=== PATIENT | male | born 1965 | race Caucasian/White ===

== ENCOUNTER 2024-09-11 20:51 | Inpatient (IN) | payer OTHER, MEDICAID, SELFPAY ==
[2024-09-11 20:55] VITALS: BP 105/71; PULSE 63; RESP 19; TEMP 37; O2SAT 93
[2024-09-11 20:57] VITALS: BMI 33.1
--- NOTE | 2024-09-11 21:00 | PC.NURSE ---
PT BROUGHT TO ER FROM HOME VIA AMBULANCE FOR C/O CP, SOB AND DIZZINESS STARTED MONDAY.EMS REPORTED THEY FOLLOWED CP PROTOCOL, NITRO PASTE WAS GIVEN.
[2024-09-11 21:18] VITALS: PULSE 86; RESP 16; O2SAT 94
--- NOTE | 2024-09-11 21:27 | XR_ITS ---
Examination: AP chest single view Technique one AP portable upright chest single view Exam date and time: September 11, 2024 2134 hrs. Comparison December 04, 2023 Indications: Chest chest pain today. Findings: Mild enlargement cardiac contour Stable position transvenous dual-chamber bipolar cardiac leads as well as epicardial lead Mild vascular congestion. No lobar pneumonia or pulmonary edema Impression: Mild vascular congestion No lobar pneumonia or pulmonary edema
--- NOTE | 2024-09-11 21:28 | EDNOTE_ITS ---
ED General RME/HPI General Chief complaint: Chest Pain Stated complaint: CHEST PAIN Time Seen by Provider: 09/11/24 21:27 Arrival date/time: 09/11/24 20:51 CC: Chest pain HPI onset approximately 2 hours ago, left anterior initially 7 out of 10 scale after aspirin and nitro decreased to a 3 on a 10 scale patient transported via EMS who reports stable vital signs and route patient has cardiac cardiac history including a pacemaker he is a diabetic on insulin. Currently pain is a 3. Patient is awake alert oriented denies shortness of breath difficulty breathing headache nausea or vomiting. Patient states industry consultant is Dr. Tariq Related [employer] Home Medications ?Medication ?Instructions ?Recorded ?Confirmed glipizide 5 mg tablet 5 mg PO BID 08/28/19 03/28/22 insulin glargine 100 unit/mL (3 20 unit subcut QPM 08/28/19 03/29/22 mL) subcutaneous pen (Lantus Solostar U-100 Insulin) insulin lispro protamine-lispro 15 unit subcut QDAY PRN sugar >250 08/28/19 03/29/22 100 unit/mL (50-50) subcutaneous pen (Humalog Mix 50-50 KwikPen) metformin 500 mg tablet 1,000 mg PO BID 08/28/19 03/29/22 bumetanide 2 mg tablet 2 mg PO QDAY 03/28/22 03/28/22 metoprolol succinate 50 mg 50 mg PO QDAY 03/28/22 03/29/22 tablet,extended release 24 hr sacubitril 24 mg-valsartan 26 mg 1 tab PO BID 03/28/22 03/28/22 tablet (Entresto) spironolactone 25 mg tablet 25 mg PO BID 03/28/22 03/28/22 warfarin 5 mg tablet 5 mg PO QDAY 03/28/22 03/28/22 albuterol sulfate 90 mcg/actuation 2 puff inhalation Q4H PRN 03/29/22 03/29/22 aerosol inhaler (ProAir HFA) Shortness Of Breath furosemide 40 mg tablet (Lasix) 40 mg PO QAM 03/29/22 03/29/22 glyburide 2.5 mg tablet 2.5 mg PO QDAY 03/29/22 03/29/22 insulin glargine 100 unit/mL (3 20 unit subcut HS 03/29/22 03/29/22 mL) subcutaneous pen (Lantus Solostar U-100 Insulin) saxagliptin 5 mg tablet (Onglyza) 5 mg PO QDAY 03/29/22 03/29/22 Previous Rx's ?Medication ?Instructions ?Recorded atorvastatin 10 mg tablet 10 mg PO QDAY 30 days #30 tabs 01/29/22 Allergies Allergy/AdvReac Type Severity Reaction Status Date / Time Penicillins Allergy Unknown Verified 03/28/22 06:36 Review of Systems Review of Systems Narrative Review of Systems: GEN: No fever, no chills, no weight loss EYES: No discharge, no visual changes, no pain HEENT: No ear pain, no congestion, no sore throat PULM: No shortness of breath, no cough, no congestion CV: + chest pain, no dyspnea on exertion, no palpitations GI: No nausea, no vomiting, no diarrhea, no pain, no constipation : No frequency, no urgency, no dysuria MUSC/SKEL: No joint pain, no back pain SKIN: No rash PSYCH: No hallucinations, no depression HEME/LYMPH: No easy bleeding or bruising tendencies NEURO: No weakness, no headache Past Medical History Past Medical History NEUROLOGIC: Negative Neurological Disorders, Cerebrovascular Accident, Transient Ischemic Attacks (TIA), Dementia, Alzheimer's Disease, Brain Tumor, Meningitis, Seizures, Epilepsy, Multiple Sclerosis, Cerebral Palsy, Amyotrophic Lateral Sclerosis (ALS/Taylor Gehrig's), Guillain-Atco Syndrome, Spina Bifida, Nowak's Palsy, Subdural Hematoma, Migraine, Head Trauma, Spinal Cord Injury or Traumatic Brain Injury CARDIAC: Positive Cardiac Disorders, Cardiac Arrhythmia, Atrial Fibrillation, Coronary Artery Disease, Hypercholesterolemia, Congestive Heart Failure, Cardiomyopathy, Edema, Cellulitis and Hypertension; Negative Myocardial Infarction, Angina, Heart Murmur, Atherosclerotic Heart Disease, Peripheral Vascular Disease, Aneurysm, Congenital Heart Disease, Valvular Heart Disease, Rheumatic Fever, Pericarditis, Deep Vein Thrombosis or Varicose Veins RESPIRATORY: Negative Chronic Obstructive Pulmonary Disease (COPD), Asthma, Bronchitis, Emphysema, Pneumonia, Pulmonary Fibrosis, Cystic Fibrosis, Tuberculosis, Pulmonary Embolism, Pulmonary Edema or Sleep Apnea GASTROINTESTINAL: Positive Obesity; Negative Gastrointestinal Disorders, Hepatitis, Cirrhosis, Pancreatitis, Celiac Disease, Gall Bladder Disease, Gastrointestinal Bleed, Esophageal Varices, Robledo's Esophagus, Colitis, Ulcerative Colitis, Diverticulitis, Diverticulosis, Ulcer, Colorectal Cancer, Irritable Bowel, Crohn's Disease, Obstructive Bowel, Hiatal Hernia, Hemorrhoids or Gastroesophageal Reflux Disease GENITOURINARY: Positive Genitourinary Disorders and Kidney Stones; Negative Renal Disease, Polycystic Kidney Disease, Neurogenic Bladder, Inguinal Hernia, Dialysis, Prostate Cancer or Benign Prostatic Hyperplasia REPRODUCTIVE: Negative Breast Cancer, Fibroids or Testicular Cancer MUSCULOSKELETAL: Positive Musculoskeletal Disorders and Arthritis; Negative Muscular Dystrophy, Myasthenia Gravis, Marfan's Syndrome, Bone Cancer, Rheumatoid Arthritis, Osteoporosis, Degenerative Disk Disease, Gout, Scoliosis, Carpal Tunnel Syndrome, Fibromyalgia, Fractures, Degenerative Joint Disease, Osteomyelitis or Poliovirus ENT: Positive Cataracts; Negative Glaucoma, Blind, Retinal Detachment, Macular Degeneration, Ear Infection, Deafness, Head Trauma or Eye Prosthesis ENDOCRINE: Positive Endocrine Disorders and Diabetes Mellitus Type 2; Negative Diabetes Mellitus Type 1, Hypoglycemia, Mee's Syndrome, Mulberry's Disease, Hyperthyroidism, Hypothyroidism, Parathyroid Disease, Pituitary Disease, Systemic Lupus Erythematosus, Syndrome of Inappropriate Antidiuretic Hormone (SIADH), Adrenal Disease or Graves' Disease HEMATOLOGIC: Negative Blood Disorders, Anemia, Leukemia, Hemophilia, Thalassemia, Sickle Cell Disease or Clotting Problems PSYCHO/SOCIAL: Negative Psychiatric Problems, Schizophrenia, Recreational Drug Use, Bipolar Disorder, Depression, Anxiety, Behavior Problems, Self-Mutilation, Attention Deficit Disorder, Attention Deficit Hyperactivity Disorder, Depression, Post Traumatic Stress Disorder or Eating Disorder OTHER HISTORY: Positive Hospitalization and Chicken Pox; Negative Autoimmune Disease, Down Syndrome, Autism, Developmental Delay, Shingles, Falls, Blood Transfusions, Blood Transfusion Reaction, Anesthesia Reactions, Organ Transplant, Chemotherapy, Radiation Therapy, MRSA, VRSA, Vancomycin-Resistant Enterococci, Human Immunodeficiency Virus (HIV), Measles, Mumps, Rubella (Tajik Measles), Pertussis, Clostridium Difficile, Cancer, Breast Cancer, Cervical Cancer, Colorectal Cancer, Lung Cancer, Ovarian Cancer, Prostate Cancer or Testicular Cancer Family History FAMILY HISTORY: Positive Family Cardiac Disorders and Family Cancer (Paternal); Negative Family Psychiatric Problems, Family Respiratory Disorders, Family Gastrointestinal Problems, Family Surgery or Family Anesthesia Reaction Surgical History SURGICAL: Positive Cardiac Surgery, Cardiac Catheterization, Pacemaker, Angiogram and Auto Implanted Cardiovert Defib; Negative Open Heart Surgery, Coronary Artery Bypass Graft, Valve Replacement, Vascular Surgery, Coronary Stent, Carotid Endarterectomy, Endocrine Surgery, Thyroidectomy, Ear Surgery, Tympanostomy Tube, Eye Surgery, Nose Surgery, Oral Surgery, Tonsillectomy, Adenoidectomy, Cochlear Implant, Corneal Transplant, Throat Surgery, Abdominal Surgery, Tracheostomy, Gastric Bypass Surgery, Gastrostomy, Bowel Surgery, Nephrectomy, Transurethral Resection, Joint Replacement, Amputation, Open Reduction Internal Fixation, Arthroscopy, Neurologic Surgery, Brain Shunt, Vasectomy or Organ Transplant Social History SMOKING STATUS: Former smoker SUBSTANCE USE: does not use ED Exam Narrative Physical exam: [General: Appears not in any acute distress Head normocephalic HEENT: Eyes pupils are PERRLA EOMs intact, mouth pink moist membranes uvula is midline within acceptable limits Neck is supple nontender Chest equal chest rise left anterior lateral chest tender to palpation, no ecchymosis or bruising patient denies any blunt trauma or repetitive motion. Respiratory: Clear to auscultation no wheezes crackles or rubs CV: Rate rhythm is regular no murmurs rubs or clicks Abdomen is soft nontender no masses positive bowel sounds all 4 quadrants Back: No CVA tenderness no spinous process tenderness from cervical spine thoracic and lumbar spine Skin: Areas of ecchymosis and very stages of resolution to the back of both hands. Otherwise skin is intact no petechiae rash induration ulceration or crepitus Extremities: Moving all extremity against resistance cap refill less than 2 seconds neurosensory intact Neuro: Awake alert oriented x3 Glascow coma 15 no focal deficits] Course Quality Measures VTE prophylaxis Orders Category Date Time Status Patient Condition Routine Admission 09/12/24 05:[address] in Observation Status Routine Admission 09/12/24 05:48 Active Activity as Tolerated Routine Care 09/12/24 05:50 Ordered Bedside Blood Glucose ACHS Care 09/12/24 05:59 Active Betadine Swab BID Care 09/12/24 13:40 Active COVID-19 Screening Questionnaire NOW Care 09/12/24 05:25 Completed Decision to Admit X1 Care 09/12/24 05:25 Completed EKG (ED ONLY) *Do not use* NOW Care 09/11/24 21:27 Completed Fluid restriction QDAY Care 09/12/24 08:23 Active Miscellaneous Nursing Order NOW Care 09/12/24 05:59 Active Notify provider NEEDED Care 09/12/24 05:48 Active Obtain weight daily Care 09/12/24 05:50 Active Strict Intake and Output Routine Care 09/12/24 08:23 Ordered Consult to Cardiology Stat Cons 09/12/24 05:55 Ordered Referral Nutritional Services Routine Cons 09/12/24 13:40 Active Referral Wound Care Stat Cons 09/12/24 05:56 Active Diet Cardiac Diet 09/12/24 Breakfast Active CA echo doppler complete Stat Exams 09/12/24 05:50 Completed EKG (ED Only) Stat Exams 09/11/24 21:27 Ordered XR chest 1V Stat Exams 09/11/24 21:27 Completed XR foot AP & LAT LTD RT 2V Routine Exams 09/12/24 12:18 Completed A1C [Glycohemoglobin w (eAG)] Routine Lab 09/12/24 08:17 Completed B-Type Natriuretic Peptide Stat Lab 09/11/24 21:40 Completed BMP [Basic Metabolic Panel] Routine Lab 09/12/24 13:45 Completed CBC Routine Lab 09/12/24 08:17 Completed CBC Stat Lab 09/11/24 21:40 Completed Comprehensive Metabolic Panel Routine Lab 09/12/24 08:17 Completed Comprehensive Metabolic Panel Stat Lab 09/11/24 21:40 Completed Drug Screen,Urine Stat Lab 09/11/24 23:06 Completed Free T4 (Free Thyroxine) Routine Lab 09/12/24 08:17 Completed INR [Prothrombin Time with INR] AM DRAW Lab 09/12/24 08:17 Completed INR [Prothrombin Time with INR] AM DRAW Lab 09/13/24 07:39 Results LDH (Lactate Dehydrogenase) Stat Lab 09/11/24 21:40 Completed Lipid Panel Routine Lab 09/12/24 08:17 Completed Magnesium Routine Lab 09/12/24 08:17 Completed Magnesium Stat Lab 09/11/24 21:40 Completed Partial Thromboplastin Time Stat Lab 09/11/24 21:40 Completed Phosphorous Routine Lab 09/12/24 08:17 Completed Prothrombin Time with INR Stat Lab 09/11/24 21:40 Completed Thyroid Stimulating Hormone Routine Lab 09/12/24 08:17 Completed Troponin I Q6H Lab 09/12/24 08:17 Completed Troponin I Routine Lab 09/12/24 13:45 Completed Troponin I Stat Lab 09/11/24 21:40 Completed Troponin I Stat Lab 09/12/24 02:00 Completed Type and Screen Stat Lab 09/11/24 23:33 Completed Urinalysis Stat Lab 09/11/24 23:06 Completed Acetaminophen Tab [Tylenol Tab] Med 09/12/24 05:50 Active 650 mg PO Q6H PRN Amiodarone [Cordarone] Med 09/12/24 09:00 Active 200 mg PO BID Atorvastatin Calcium [Lipitor] Med 09/12/24 21:00 Discontinued 40 mg PO HS Bumetanide Inj [Bumex Inj] Med 09/13/24 09:00 Active 2 mg IVP QDAY Bumetanide [Bumex] Med 09/12/24 09:00 Discontinued 2 mg PO QDAY Dextrose 50% Syr [D50w Syringe Abboject] Med 09/12/24 05:59 Active 25 ml IV Q15MIN PRN Dextrose 50% Syr [D50w Syringe Abboject] Med 09/12/24 05:59 Active 50 ml IV Q15MIN PRN Glucagon Inj Med 09/12/24 05:59 Active 1 mg IM Q15MIN PRN INSULIN LISPRO (AdmeLOG) [HumaLOG] Med 09/12/24 07:30 Active See Protocol SC ACHS Insulin Glargine Inj [Lantus Inj] Med 09/12/24 09:00 Active 20 unit SC QDAY KCL 10% Liq UDC 15 ML Med 09/12/24 10:36 Discontinued 40 meq PO X1 ONE Magnesium Oxide [Mag-Ox 400] Med 09/12/24 10:45 Active 400 mg PO QDAY Metoprolol Succinate Xl [Toprol Xl] Med 09/12/24 09:00 Hold 50 mg PO QDAY Phytonadione Inj [Vitamin K Inj] Med 09/12/24 08:30 Discontinued 2 mg IM X1 ONE Sodium Chloride 0.9% 500 ml [Ns] 500 ml Med 09/12/24 05:01 Discontinued IV 999 mls/hr Warfarin [Coumadin] Med 09/12/24 12:00 Hold 5 mg PO QDAY@1200 Code Status Routine Oth 09/12/24 05:48 Ordered Oxygen Delivery PRN RT 09/12/24 05:50 Active Vital Signs Vital signs: Vital Signs Temperature 98.6 F 09/11/24 20:55 Pulse Rate 63 09/11/24 20:55 Respiratory Rate 19 09/11/24 20:55 Blood Pressure 105/71 09/11/24 20:55 Pulse Oximetry (%) 93 L 09/11/24 20:55 Oxygen Delivery Method Room Air 09/11/24 20:55 [facility] Patient data External records reviewed:: [facility] previous records and EMS form Clinical information provided by:: patient and EMS Social determinants that could affect healthcare access:: none Patient has the following chronic illnesses:: CAD How is presenting disease/condition affected by chronic disease/condition?: e xacerbated by Evaluation data The following diagnostics were reviewed and interpreted by me:: lab results, radiology exam(s) and EKG tracing(s) Lab and/or radiology exams considered but not ordered:: EKG performed at 2101 shows ventricular rate of 61 MN interval 259 QRS of 224 QTc of 555 . Prolonged QT left bundle branch block with first-degree block. When compared to an old EKG of May 2024 the morphology is different as there there is a right bundle branch block. Interpretation Summary: See [facility] Medications Medications considered but not ordered:: None Medication administrations:: Medication Administration History Acetaminophen (Acetaminophen 325 Mg Tablet) 650 mg PO Q6H PRN PRN Reason: Fever >100.4 or Pain Stop: 10/12/24 05:49 Amiodarone HCl (Amiodarone Hcl 200 Mg Tablet) 200 mg PO BID REPLACED BY [facility] Stop: 10/12/24 08:59 Last Admin: 09/13/24 09:57 Dose: 200 mg Documented By: Admin: 09/12/24 20:12 Dose: 200 mg Documented By: Admin: 09/12/24 09:56 Dose: 200 mg Documented By: Atorvastatin Calcium (Atorvastatin Calcium 20 Mg Tablet) 80 mg PO HS REPLACED BY [facility] Stop: 10/12/24 17:29 Last Admin: 09/12/24 18:33 Dose: 80 mg Documented By: LUBA Bumetanide (Bumetanide Inj 0.25 Mg/Ml Vial 4 Ml) 2 mg IVP QDAY REPLACED BY [facility] Stop: 10/13/24 08:59 Last Admin: 09/13/24 09:55 Dose: 2 mg Documented By: KANDICE Dextrose (Dextrose 50%-Water Inj 50 Ml Syringe) 25 ml IV Q15MIN PRN PRN Reason: BG 50-70 responsive npo pt Stop: 10/12/24 05:58 Dextrose (Dextrose 50%-Water Inj 50 Ml Syringe) 50 ml IV Q15MIN PRN PRN Reason: BG <50 OR BG <70 & pt unresponsive Stop: 10/12/24 05:58 Glucagon (Glucagon Inj 1 Mg Vial) 1 mg IM Q15MIN PRN PRN Reason: BG <70, and no IV access Insulin Glargine (Insulin Glargine (Lantus) 5 Unit/0.05 Ml (Per 5 Units)) 20 unit SC QDAY REPLACED BY [facility] Stop: 10/12/24 08:59 Last Admin: 09/13/24 09:57 Dose: 20 unit Documented By: KANDICE Co-signed By: RBEE Admin: 09/12/24 10:32 Dose: 20 unit Documented By: Co-signed By: MARIANNE Insulin Human Lispro (Insulin Lispro (Admelog) 1 Unit/0.01 Ml Unit) 0 unit SC ACHS REPLACED BY [facility]; Protocol Stop: 10/12/24 07:29 Last Admin: 09/13/24 07:45 Dose: Not Given Documented By: KANDICE Non-Admin Reason: Patient Refused Comments: Pt had already started eating, wants to wait for 9oclock reading Admin: 09/12/24 20:01 Dose: Not Given Documented By: Non-Admin Reason: Per Protocol Admin: 09/12/24 16:23 Dose: 1 unit Documented By: LUBA Co-signed By: DANTE Admin: 09/12/24 11:32 Dose: 3 unit Documented By: Co-signed By: MARIANNE Admin: 09/12/24 07:28 Dose: Not Given Documented By: JOANNE Non-Admin Reason: Per Protocol Comments: no coverage req Magnesium Oxide (Magnesium Oxide 400 Mg Tablet) 400 mg PO QDAY REPLACED BY [facility] Stop: 10/12/24 10:44 Last Admin: 09/13/24 09:57 Dose: 400 mg Documented By: Admin: 09/12/24 11:32 Dose: 400 mg Documented By: Metoprolol Succinate (Metoprolol Succinate Xl 25 Mg Tabcr) 50 mg PO QDAY REPLACED BY [facility] Stop: 10/12/24 08:59 Last Admin: 09/12/24 10:26 Dose: Not Given Documented By: Non-Admin Reason: on hold Warfarin Sodium (Warfarin 1 Mg Tablet) 5 mg PO QDAY@1200 REPLACED BY [facility] Stop: 09/26/24 11:59 Discontinued Medications Atorvastatin Calcium (Atorvastatin Calcium 20 Mg Tablet) 40 mg PO [facility] Stop: 10/12/24 20:59 Bumetanide (Bumetanide 0.5 Mg Tablet) 2 mg PO QDAY REPLACED BY [facility] Stop: 10/12/24 08:59 Last Admin: 09/12/24 09:57 Dose: 2 mg Documented By: Sodium Chloride (Ns) 500 mls @ 999 mls/hr IV .Q31M ONE Stop: 09/12/24 05:31 Last Infusion: 09/12/24 05:54 Dose: Infused Documented By: Admin: 09/12/24 05:21 Dose: 999 mls/hr Documented By: CVL Phytonadione (Phytonadione Inj 10 Mg/Ml Amp) 2 mg IM X1 ONE Stop: 09/12/24 08:31 Last Admin: 09/12/24 08:43 Dose: 2 mg Documented By: JOANNE Phytonadione (Phytonadione Inj 10 Mg/Ml Amp) 10 mg SC X1 ONE Stop: 09/12/24 20:26 Last Admin: 09/12/24 20:51 Dose: 10 mg Documented By: Potassium Chloride (Potassium Chloride 10% 20 Meq/15 Ml Udc) 40 meq PO X1 ONE Stop: 09/12/24 10:37 Last Admin: 09/12/24 11:32 Dose: 40 meq Documented By: None Consultations Consultation(s) initiated? (list below): Yes Diagnosis Differential Diagnosis ED Complaint MDM: ACS UT pneumonia Most likely diagnosis given after review of the tests above:: Chest pain Admission Indicated Admission indicated?: indicated Explain why admission is indicated or not indicated:: Further medical management Admission Request Was there a request for admission?: No Disposition Plan Disposition Plan: Admit Medical Decision Making Differential Diagnosis Differential Diagnosis: ACS UT pneumonia Lab Data 09/13/24 07:39 09/13/24 07:39 Labs: Lab Results 09/11/24 09/11/24 09/11/24 Range/Units 21:40 23:06 23:33 WBC 7.4 (3.8-10.6) Thou/mm3 RBC 3.69 L (4.50-5.90) Miln/mm3 Hgb 12.3 L (13.5-16.0) g/dL Hct 35.8 L (41.0-53.0) % MCV 97 (80-100) fL MCH 33.3 (25.0-35.0) pg MCHC 34.4 (31.0-37.0) g/dl RDW Std Deviation 51.1 H (35.1-43.9) fL Plt Count 227 (140-440) Thou/mm3 Neut % (Auto) 65 (37-80) % Lymph % (Auto) 22 (10-50) % Levy % (Auto) 10 (0-12) % Eos % (Auto) 3 (0-10) % Baso % (Auto) 1 (0-2.5) % Neut # (Auto) 4.8 (1.8-7.7) Thou/mm3 Lymph # (Auto) 1.6 (1.0-4.8) Thou/mm3 Levy # (Auto) 0.7 (0.0-0.8) Thou/mm3 Eos # (Auto) 0.2 (0.0-0.5) Thou/mm3 Baso # (Auto) 0.1 (0.0-0.2) Thou/mm3 Immature Gran # (Auto) 0.02 H (0.00-0.00) Thou/mm3 Absolute Nucleated RBC 0.00 (0.00-0.00) Thou/mm3 Immature Gran % 0 (0-0) % Nucleated RBC % 0 (0) /100 WBC PT 57.2 H* (9.0-12.2) Seconds INR 6.1 H* (0.9-1.3) APTT 40.3 H (22.0-36.0) Seconds Sodium 138 (136-145) mMol/L Potassium 3.8 (3.4-5.1) mMol/L Chloride 97 L (98-107) mMol/L Carbon Dioxide 27.3 (20.0-31.0) mMol/L Anion Gap 14 (7-16) BUN 40 H (9-23) mg/dL Creatinine 2.4 H (0.6-1.3) mg/dL Estim Creat Clear Calc 37.8 L (>60) mL/min eGFR 30 L (60 - ) See Note BUN/Creatinine Ratio 17 (12-20) Ratio Glucose 135 H (74-106) mg/dL Estimated Ave Glu mg/dL (80-131) mg/dL Hemoglobin A1c (4.8-6.0) % Hgb Calculated Osmolality 287 (275-295) Calcium 10.0 (8.3-10.6) mg/dL Corrected Calcium 10.0 (8.5-10.1) mg/dL Phosphorus (2.4-5.1) mg/dL Magnesium 1.7 (1.6-2.6) mg/dL Total Bilirubin 0.5 (0.3-1.2) mg/dL AST 10 (0-34) U/L ALT 38 (10-49) U/L Alkaline Phosphatase 48 (46-116) U/L Lactate Dehydrogenase 224 (120-246) U/L Troponin I 0.041 (0.0-0.045) ng/mL B-Natriuretic Peptide 1548 H* (0-100) pg/mL Total Protein 7.3 (5.7-8.2) gm/dL Albumin 4.8 (3.5-5.0) gm/dL Globulin 2.5 (2.3-3.5) gm/dL Albumin/Globulin Ratio 1.9 (1.2-2.2) Triglycerides (30-150) mg/dL Cholesterol (132-200) mg/dL LDL Cholesterol, Calc (0-130) mg/dL HDL Cholesterol (40-60) mg/dL Cholesterol/HDL Ratio (4.0-6.7) RATIO TSH (0.55-4.78) uIU/mL Free T4 (0.89-1.76) ng/dL Ur Collection Type Clean Catch Urine Color Lt-Yellow (Lt Yel-Yel) Urine Clarity Clear (Clear/Hazy) Urine pH 6.0 (5.0-7.0) Ur Specific [place] 1.015 (1.001-1.035) Urine Protein Negative (Neg - Trace) Urine Glucose (UA) Negative (Negative) Urine Ketones Negative (Negative) Urine Blood Negative (Negative) Urine Nitrite Negative (Negative) Urine Bilirubin Negative (Negative) Urine Urobilinogen (Auto) Negative (0.0-1.0) mg/dL Ur Leukocyte Esterase Negative (Negative) Urine RBC < 1 (0-3) /hpf Urine WBC 1 (0-5) /hpf Ur Squamous Epith Cells 0 (0-5) /hpf Urine Bacteria None (None) Hyaline Casts 1 (0-1) /hpf Urine Opiates Screen Negative (Negative) Urine Fentanyl Screen Negative (Negative) Ur Barbiturates Screen Negative (Negative) U Amphetamin/Meth Scrn Negative (Negative) U Benzodiazepines Scrn Negative (Negative) U Cocaine Metab Screen Negative (Negative) U Marijuana (THC) Screen Negative (Negative) Blood Type A Positive Antibody Screen NEGATIVE Blood Bank Wristband ID Yes 09/12/24 09/12/24 09/12/24 Range/Units 02:00 08:17 13:45 WBC 6.1 (3.8-10.6) Thou/mm3 RBC 3.34 L (4.50-5.90) Miln/mm3 Hgb 11.3 L (13.5-16.0) g/dL Hct 32.4 L (41.0-53.0) % MCV 97 (80-100) fL MCH 33.8 (25.0-35.0) pg MCHC 34.9 (31.0-37.0) g/dl RDW Std Deviation 51.0 H (35.1-43.9) fL Plt Count 167 D (140-440) Thou/mm3 Neut % (Auto) 70 (37-80) % Lymph % (Auto) 18 (10-50) % Levy % (Auto) 8 (0-12) % Eos % (Auto) 3 (0-10) % Baso % (Auto) 1 (0-2.5) % Neut # (Auto) 4.3 (1.8-7.7) Thou/mm3 Lymph # (Auto) 1.1 (1.0-4.8) Thou/mm3 Levy # (Auto) 0.5 (0.0-0.8) Thou/mm3 Eos # (Auto) 0.2 (0.0-0.5) Thou/mm3 Baso # (Auto) 0.1 (0.0-0.2) Thou/mm3 Immature Gran # (Auto) 0.03 H (0.00-0.00) Thou/mm3 Absolute Nucleated RBC 0.00 (0.00-0.00) Thou/mm3 Immature Gran % 1 H (0-0) % Nucleated RBC % 0 (0) /100 WBC PT > 63.0 H* D (9.0-12.2) Seconds INR (0.9-1.3) APTT (22.0-36.0) Seconds Sodium 140 135 L (136-145) mMol/L Potassium 3.2 L D 4.1 D (3.4-5.1) mMol/L Chloride 99 97 L (98-107) mMol/L Carbon Dioxide 32.3 H 27.3 (20.0-31.0) mMol/L Anion Gap 9 11 (7-16) BUN 41 H 42 H (9-23) mg/dL Creatinine 2.1 H 2.3 H (0.6-1.3) mg/dL Estim Creat Clear Calc 43.2 L 38.3 L (>60) mL/min eGFR 36 L 32 L (60 - ) See Note BUN/Creatinine Ratio 20 18 (12-20) Ratio Glucose 115 H 258 H D (74-106) mg/dL Estimated Ave Glu mg/dL 137 H (80-131) mg/dL Hemoglobin A1c 6.4 H (4.8-6.0) % Hgb Calculated Osmolality 290 289 (275-295) Calcium 9.4 9.4 (8.3-10.6) mg/dL Corrected Calcium 9.4 (8.5-10.1) mg/dL Phosphorus 3.8 (2.4-5.1) mg/dL Magnesium 1.7 (1.6-2.6) mg/dL Total Bilirubin 0.5 (0.3-1.2) mg/dL AST 27 (0-34) U/L ALT 36 (10-49) U/L Alkaline Phosphatase 42 L (46-116) U/L Lactate Dehydrogenase (120-246) U/L Troponin I 0.048 H* 0.043 0.037 (0.0-0.045) ng/mL B-Natriuretic Peptide (0-100) pg/mL Total Protein 6.5 (5.7-8.2) gm/dL Albumin 4.2 D (3.5-5.0) gm/dL Globulin 2.3 (2.3-3.5) gm/dL Albumin/Globulin Ratio 1.8 (1.2-2.2) Triglycerides 117 (30-150) mg/dL Cholesterol 126 L (132-200) mg/dL LDL Cholesterol, Calc 71 (0-130) mg/dL HDL Cholesterol 32 L (40-60) mg/dL Cholesterol/HDL Ratio 3.9 L (4.0-6.7) RATIO TSH 6.21 H (0.55-4.78) uIU/mL Free T4 1.62 (0.89-1.76) ng/dL Ur Collection Type Urine Color (Lt Yel-Yel) Urine Clarity (Clear/Hazy) Urine pH (5.0-7.0) Ur Specific [place] (1.001-1.035) Urine Protein (Neg - Trace) Urine Glucose (UA) (Negative) Urine Ketones (Negative) Urine Blood (Negative) Urine Nitrite (Negative) Urine Bilirubin (Negative) Urine Urobilinogen (Auto) (0.0-1.0) mg/dL Ur Leukocyte Esterase (Negative) Urine RBC (0-3) /hpf Urine WBC (0-5) /hpf Ur Squamous Epith Cells (0-5) /hpf Urine Bacteria (None) Hyaline Casts (0-1) /hpf Urine Opiates Screen (Negative) Urine Fentanyl Screen (Negative) Ur Barbiturates Screen (Negative) U Amphetamin/Meth Scrn (Negative) U Benzodiazepines Scrn (Negative) U Cocaine Metab Screen (Negative) U Marijuana (THC) Screen (Negative) Blood Type Antibody Screen Blood Bank Wristband ID Discharge Plan Plan Patient Disposition: Admit Acute Care w/in Hospital Problem List Clinical Impression: Chest pain Patient/Caregiver Discharge Instructions Other Activity Instructions:: Wound to right side/bottom of foot: May shower than swab with betadine daily allowing black scabbed area to dry. Wipe off any betadine to surrounding tissue. Please continue to wear offloading boot with foam while walking. Follow up with Podiatry. Please call to make appointment within 1-2 weeks of your discharge PA/CHEMISTRY ASSOCIATE Supervising Physician PA/CHEMISTRY ASSOCIATE Supervising Physician: Nic Dent ENP
[2024-09-11 22:05] VITALS: BP 90/63; PULSE 60; RESP 18; O2SAT 96
--- NOTE | 2024-09-11 22:05 | PC.NURSE ---
PT BP LOW, NITRO PASTE REMOVED, MIGUEL WOODS AWARE.
[2024-09-11 22:06] LABS: Basophils # (Auto) 0.1 Thou/mm3 (0.0-0.2); Basophils % (Auto) 1 % (0-2.5); Eosinophils # (Auto) 0.2 Thou/mm3 (0.0-0.5); Eosinophils % (Auto) 3 % (0-10); Hematocrit 35.8 % (41.0-53.0); Hemoglobin 12.3 g/dL (13.5-16.0); Immature Granulocytes % (Auto) 0 % (0-0); Immature Granulocytes Auto 0.02 Thou/mm3 (0.00-0.00); Lymphocytes # (Auto) 1.6 Thou/mm3 (1.0-4.8); Lymphocytes % (Auto) 22 % (10-50); Mean Corpuscular HGB Conc 34.4 g/dl (31.0-37.0); Mean Corpuscular Hemoglobin 33.3 pg (25.0-35.0); Mean Corpuscular Volume 97 fL (80-100); Monocytes # (Auto) 0.7 Thou/mm3 (0.0-0.8); Monocytes % (Auto) 10 % (0-12); Neutrophils # (Auto) 4.8 Thou/mm3 (1.8-7.7); Neutrophils % (Auto) 65 % (37-80); Nucleated Red Blood Cell % 0 /100 WBC (0); Platelet Count 227 Thou/mm3 (140-440); RDW Standard Deviation 51.1 fL (35.1-43.9); Red Blood Count 3.69 Miln/mm3 (4.50-5.90); White Blood Count 7.4 Thou/mm3 (3.8-10.6)
[2024-09-11 23:00] LABS: B-Type Natriuretic Peptide 1548 pg/mL (0-100)
--- NOTE | 2024-09-11 23:01 | PD.EDADDENDU ---
Emergency Room Addendum Addendum Narrative: 2300: Care assumed from Nic Dent NP. Past medical, surgical, social and family history reviewed. Vitals and home medications reviewed. Results and treatment plan discussed. I will assume the care of the patient at this time and will follow the patient, pending labs. Please refer to the emergency department record for history and examination from initial visit. CXR shows cardiomegaly, but no pleural effusion or CHF, according to my interpretation. CBC is normal, Creatinine is elevated at 2.4, BNP is elevated at 1548, initial troponin is normal at 0.041, repeat troponin is elevated at 0.048, UA is unremarkable, UDS is negative, according to my interpretation. 0524: Discussed case with [Dr. Sexton] from Hospitalist service regarding admission. Discussed patients ED course, exam findings, labs, and radiology results. The Hospitalist [agrees] to accept the patient for admission.
[2024-09-11 23:10] LABS: Collection Type, Urine Clean Catch; Squamous Epithelial Cell,Urine 0 /hpf (0-5)
[2024-09-11 23:32] LABS: Bilirubin,Urine Negative (Negative); Blood,Urine Negative (Negative); Clarity,Urine Clear (Clear/Hazy); Color,Urine Lt-Yellow (Lt Yel-Yel); Glucose, Urine Negative (Negative); Hyaline Casts,Urine 1 /hpf (0-1); Ketones,Urine Negative (Negative); Leukocyte Esterase,Urine Negative (Negative); Nitrite,Urine Negative (Negative); Protein,Urine Negative (Neg - Trace); RBC,Urine < 1 /hpf (0-3); Specific Gravity,Urine 1.015 (1.001-1.035); Urobilinogen,Urine Negative mg/dL (0.0-1.0); WBC,Urine 1 /hpf (0-5)
[2024-09-11 23:33] LABS: Alanine Aminotransferase 38 U/L (10-49); Albumin, Serum 4.8 gm/dL (3.5-5.0); Albumin/Globulin Ratio 1.9 (1.2-2.2); Alkaline Phosphatase 48 U/L (46-116); Anion Gap 14 (7-16); Aspartate Amino Transferase 10 U/L (0-34); BUN/Creatinine Ratio 17 Ratio (12-20); Bilirubin,Total 0.5 mg/dL (0.3-1.2); Blood Urea Nitrogen 40 mg/dL (9-23); Carbon Dioxide 27.3 mMol/L (20.0-31.0); Chloride 97 mMol/L (98-107); Creatinine (Component) 2.4 mg/dL (0.6-1.3); Estimated Creatinine Clearance 37.8 mL/min (>60); Globulin 2.5 gm/dL (2.3-3.5); Glucose 135 mg/dL (74-106); LDH (Lactate Dehydrogenase) 224 U/L (120-246); Magnesium 1.7 mg/dL (1.6-2.6); Osmolality,Calculated 287 (275-295); Potassium 3.8 mMol/L (3.4-5.1); Sodium 138 mMol/L (136-145); Total Protein 7.3 gm/dL (5.7-8.2); Troponin I 0.041 ng/mL (0.0-0.045); eGFR 30 See Note
[2024-09-12] VITALS (29 sets, daily range): BP systolic 78–94; BP diastolic 56–73; PULSE 60–65; RESP 10–97; TEMP 36.2–36.7; O2SAT 93–100
[2024-09-12 00:06] LABS: Amphetamine/Methamp Scrn,U Negative (Negative); Barbiturate Screen,Urine Negative (Negative); Benzodiazepines Screen,Urine Negative (Negative); Benzoylecgonine Screen, Ur Negative (Negative); Fentanyl Screen,Urine Negative (Negative); Opiate Screen,Urine Negative (Negative); THC Screen,Urine Negative (Negative)
[2024-09-12 03:10] LABS: Troponin I 0.048 ng/mL (0.0-0.045)
[2024-09-12] MEDS: SODIUM CHLORIDE 0.9% 500 ML 500 ML 999 ML IV (05:21)
--- NOTE | 2024-09-12 05:50 | ECHO_ITS ---
Transthoracic Echo Report Ht (in): 68 Wt (lb): 218 Exam Location: Portable Status: Inpatient Director Of Instructional Technology: Rehana Baird Indications: Procedure Performed: BP: 78 / 63 HR: 60 Technical Quality: Fair MEASUREMENTS (Male / Female) Normal Values 2D ECHO LV Diastolic Diameter PLAX 7.1 cm 4.2 - 5.9 / 3.9 - 5.3 cm LV Systolic Diameter PLAX 6.8 cm IVS Diastolic Thickness 0.7 cm 0.6 - 1.0 / 0.6 - 0.9 cm LVPW Diastolic Thickness 0.9 cm 0.6 - 1.0 / 0.6 - 0.9 cm LV Relative Wall Thickness 0.2 LVOT Diameter 2.8 cm LA Volume Index 50.6 cm?/m? 16 - 28 cm?/m? Ascending Aorta Diameter 3.8 cm M-MODE Aortic Root Diameter MM 3.2 cm LA Systolic Diameter MM 5.1 cm LA Ao Ratio MM 1.6 MV E Point Septal Separation 3.0 cm AV Cusp Separation MM 1.3 cm DOPPLER AV Peak Velocity 373.6 cm/s AV Peak Gradient 55.8 mmHg AV Mean Gradient 30.8 mmHg AV Velocity Time Integral 99.4 cm LVOT Peak Velocity 34.0 cm/s LVOT Peak Gradient 0.5 mmHg LVOT Velocity Time Integral 8.4 cm LVOT Cardiac Index 1403.7 cm?/min?m? AV Area Cont Eq vti 0.5 cm? AV Area Cont Eq pk 0.6 cm? MV Peak Velocity 96.1 cm/s MV Peak Gradient 3.7 mmHg MV Mean Velocity 54.0 cm/s MV Mean Gradient 1.0 mmHg MV Area PHT 3.3 cm? MR Peak Velocity 289.0 cm/s MR Peak Gradient 33.4 mmHg Mitral E Point Velocity 83.9 cm/s Mitral A Point Velocity 29.1 cm/s Mitral E to A Ratio 2.9 LV E' Lateral Velocity 6.3 cm/s Mitral E to LV E' Lateral Ratio 13.3 LV E' Septal Velocity 2.7 cm/s Mitral E to LV E' Septal Ratio 30.8 TR Peak Velocity 247.0 cm/s TR Peak Gradient 24.4 mmHg FINDINGS Left Ventricle Dilated left ventricle. Severe systolic dysfunction. Severe global hypokinesis. The ejection fracti on is visually estimated at 15%. Right Ventricle The right ventricle is mildly dilated. Mild systolic dysfunction. The estimated right ventricular s ystolic pressure, 48 mmHg. RAP 15. Pacing wire present. Left Atrium The left atrium is severely dilated. Right Atrium The right atrium is mildly dilated. Atrial Septum The interatrial septum appears normal with no evidence of a shunt. Aorta The ascending aorta is mildly dilated. Mitral Valve The mitral valve is normal by two-dimensional, color flow and Doppler interrogation. There is mild mitral valve regurgitation. Aortic Valve The aortic valve is trileaflet. Moderate stenosis, mean gradient 34mmHg, vmax 3.8m/s. There is mild aortic valve regurgitation. Tricuspid Valve The tricuspid valve is normal by two-dimensional, color flow and Doppler interrogation. There is mil d tricuspid valve regurgitation. Pulmonic Valve There is no significant pulmonic valve regurgitation. Vessels The pulmonary artery appears normal. The inferior vena cava pulmonary and hepatic veins appear mildy dilated. Pericardium The pericardium is normal by two-dimensional imaging. There is no significant pericardial effusion. CONCLUSIONS Dilated LV. Severe systolic dysfunction. Severe global hypokiensis. Estimated EF 15% Mild RV dilatation. Mild RV dysfunction. Estimated RVSP 48mmHg. Pacing wire present Severe LA dilatation. Mild RA dilatation Mild Ascending aorta dilatation Severe calcific stenosis, mean gradient 34mmHg, vmax 3.8m/s Peak Gradient 54 mm hG Mild valentino regurgitation Mild aortic regurgitation Mild tricuspid regurgitation IVC dilated. Beatriz Bhakta (Electronically Signed) Final Date: 12 September 2024 12:54
--- NOTE | 2024-09-12 06:36 | ESHP_ITS ---
Documentation for date of: 09/12/24 [facility] History of Present Illness History of present illness: Patient is a 59-year-old male with past medical history of HFrEF s/p AICD/pacemaker, type 2 diabetes on insulin, afib on warfarin, insulin-dependent type 2 diabetes mellitus, and hyperlipidemia who presented to the ED on 09/12/2024 with pressure-like left-sided substernal chest pain starting around 1:30 am last night, at its worst rated 8/10. Patient reports that he took an aspirin which improved the pain. When EMS arrived, he was given another aspirin and nitroglycerin, which patient states also relieved the pain to a 3/10. Currently in the ED it is 1/10. Patient states that this is the first time feeling a pain like this. Pain is also worse with palpation of the chest. He denies any recent exertional physical activity or muscle straining exercises. He follows with Dr. Tariq. Patient also endorses cough that has been present about 2 weeks with clear phelgm. The cough is worse with position, particularly laying on the left side. He denies orthopnea or paroxysmal nocturnal dyspnea. He denies any fevers, chills, sweats, shortness of breath, nausea, vomiting. ED Course: -Initial vitals were BP 105/71, HR 63, RR 19, Temp 98.6, O2 93% on room air -EKG showed rate of 61, prolonged QT, left bundle branch block with first-degree AV block -Labs significant for Hgb 12.3, Hct 35.8, BUN 40, creatinine 2.4, GFR 30, troponin 0.041->0.048, BNP 1548 -UA and Utox negative -CXR showed mild vascular congestion as evidenced by enlarged cardiac silhouette and perihilar infiltrate -In the ED, patient was given 500 ml NS -Patient was admitted for further evaluation of chest pain, rule out of ACS Review of Systems Review of systems otherwise negative except what is mentioned above. Past Medical History Past Medical History Comments PMH COMMENT: Past Medical History: HFrEF s/p AICD/pacemaker, type 2 diabetes on insulin, afib on warfarin, insulin-dependent type 2 diabetes mellitus, and hyperlipidemia Family History: Positive for cardiac disease in mother ( of [place]), and cancer in father Surgical History: AICD/pacemaker implantation, has regular debridements of bilateral foot blisters at [facility] Social History: Denies history of smoking, denies current alcohol use, denies recreational drug use Current Medications: Patient does not recall all meds, states he is on a water pill as well as 21 U insulin daily Allergies: No known drug allergies Exam Vital Signs Temp Pulse Resp BP Pulse Ox O2 Del Method O2 Flow Rate 97.9 F 60 20 93/71 98 Nasal Cannula 3 09/12/24 06:15 09/12/24 05:57 09/12/24 05:57 09/12/24 05:57 09/12/24 05:57 09/12/24 05:57 09/12/24 05:57 Narrative Exam Physical Exam General: Awake and in no acute distress. Conversational and non-toxic appearing. HEENT: Normocephalic, atraumatic, mucous membranes moist. Heart: Regular rate and rhythm, no murmurs. Pain upon palpation of the entire chest wall. Lungs: Clear to auscultation with no wheezing or crackles. Patient is coughing upon examination. Abdomen: Soft, nondistended, nontender, positive bowel sounds. ?No guarding or rebound tenderness. Neurologic: Alert and oriented x3, no gross neurological deficit, and patient able to move all 4 extremities. Extremities: No lower extremity edema. Skin: No rash or ecchymoses. Results: Labs 09/12/24 08:17 09/12/24 08:17 Labs: Short CBC 09/11/24 Range/Units 21:40 WBC 7.4 (3.8-10.6) Thou/mm3 Hgb 12.3 L (13.5-16.0) g/dL Hct 35.8 L (41.0-53.0) % Plt Count 227 (140-440) Thou/mm3 BMP 09/11/24 21:40 Sodium 138 Potassium 3.8 Chloride 97 L Carbon Dioxide 27.3 BUN 40 H Creatinine 2.4 H Glucose 135 H Calcium 10.0 Cardiac Enzymes 09/11/24 09/12/24 Range/Units 21:40 02:00 Troponin I 0.041 0.048 H* (0.0-0.045) ng/mL Liver Function 09/11/24 Range/Units 21:40 Total Bilirubin 0.5 (0.3-1.2) mg/dL AST 10 (0-34) U/L ALT 38 (10-49) U/L Alkaline Phosphatase 48 (46-116) U/L Albumin 4.8 (3.5-5.0) gm/dL Urine 09/11/24 Range/Units 23:06 Urine Color Lt-Yellow (Lt Yel-Yel) Urine Clarity Clear (Clear/Hazy) Urine pH 6.0 (5.0-7.0) Ur Specific [place] 1.015 (1.001-1.035) Urine Protein Negative (Neg - Trace) Urine Glucose (UA) Negative (Negative) Quality Measures Quality Measures VTE therapy Medications Home Medications and Allergies Home Medications ?Medication ?Instructions ?Recorded ?Confirmed ?Type glipizide 5 mg tablet 5 mg PO BID 08/28/19 03/28/22 History insulin glargine 100 unit/mL (3 20 unit subcut QPM 08/28/19 03/29/22 History mL) subcutaneous pen (Lantus Solostar U-100 Insulin) insulin lispro protamine-lispro 15 unit subcut QDAY PRN sugar >250 08/28/19 03/29/22 History 100 unit/mL (50-50) subcutaneous pen (Humalog Mix 50-50 KwikPen) metformin 500 mg tablet 1,000 mg PO BID 08/28/19 03/29/22 History bumetanide 2 mg tablet 2 mg PO QDAY 03/28/22 03/28/22 History metoprolol succinate 50 mg 50 mg PO QDAY 03/28/22 03/29/22 History tablet,extended release 24 hr sacubitril 24 mg-valsartan 26 mg 1 tab PO BID 03/28/22 03/28/22 History tablet (Entresto) spironolactone 25 mg tablet 25 mg PO BID 03/28/22 03/28/22 History warfarin 5 mg tablet 5 mg PO QDAY 03/28/22 03/28/22 History albuterol sulfate 90 mcg/actuation 2 puff inhalation Q4H PRN 03/29/22 03/29/22 History aerosol inhaler (ProAir HFA) Shortness Of Breath furosemide 40 mg tablet (Lasix) 40 mg PO QAM 03/29/22 03/29/22 History glyburide 2.5 mg tablet 2.5 mg PO QDAY 03/29/22 03/29/22 History insulin glargine 100 unit/mL (3 20 unit subcut HS 03/29/22 03/29/22 History mL) subcutaneous pen (Lantus Solostar U-100 Insulin) saxagliptin 5 mg tablet (Onglyza) 5 mg PO QDAY 03/29/22 03/29/22 History Allergies Allergy/AdvReac Type Severity Reaction Status Date / Time Penicillins Allergy Unknown Verified 03/28/22 06:36 Visit Medications Acetaminophen (Acetaminophen 325 Mg Tablet) 650 mg PO Q6H PRN PRN Reason: Fever >100.4 or Pain Stop: 10/12/24 05:49 Amiodarone HCl (Amiodarone Hcl 200 Mg Tablet) 200 mg PO BID [facility] Stop: 10/12/24 08:59 Bumetanide (Bumetanide 0.5 Mg Tablet) 2 mg PO QDAY [facility] Stop: 10/12/24 08:59 Dextrose (Dextrose 50%-Water Inj 50 Ml Syringe) 25 ml IV Q15MIN PRN PRN Reason: BG 50-70 responsive npo pt Stop: 10/12/24 05:58 Dextrose (Dextrose 50%-Water Inj 50 Ml Syringe) 50 ml IV Q15MIN PRN PRN Reason: BG <50 OR BG <70 & pt unresponsive Stop: 10/12/24 05:58 Glucagon (Glucagon Inj 1 Mg Vial) 1 mg IM Q15MIN PRN PRN Reason: BG <70, and no IV access Insulin Glargine (Insulin Glargine (Lantus) 5 Unit/0.05 Ml (Per 5 Units)) 20 unit SC QDAY [facility] Stop: 10/12/24 08:59 Insulin Human Lispro (Insulin Lispro (Admelog) 1 Unit/0.01 Ml Unit) 0 unit SC [facility]; Protocol Stop: 10/12/24 07:29 Metoprolol Succinate (Metoprolol Succinate Xl 25 Mg Tabcr) 50 mg PO QDAY [facility] Stop: 10/12/24 08:59 Warfarin Sodium (Warfarin 1 Mg Tablet) 5 mg PO QDAY@1200 [facility] Stop: 09/26/24 11:59 Discontinued Medications Sodium Chloride (Ns) 500 mls @ 999 mls/hr IV .Q31M ONE Stop: 09/12/24 05:31 Last Infusion: 09/12/24 05:54 Dose: Infused Assessment & Plan Plan Patient is a 59-year-old male with past medical history of HFrEF s/p AICD/pacemaker, type 2 diabetes on insulin, afib on warfarin, insulin-dependent type 2 diabetes mellitus, and hyperlipidemia who presented to the ED on 09/12/2024 with pressure-like left-sided substernal chest pain #Atypical chest pain #Rule out of ACS #History of HFrEF s/p AICD, not currently in exacerbation #Elevated troponin Patient complained of left-sided substernal chest pain which was relieved with aspirin and nitroglycerin. However it is also worsened upon palpation and movement, which is atypical. On admission: Troponin is very mildly elevated at 0.048. EKG showed LBBB, first degree AV block, EKG from 2021 also showed LBBB. Echo on chart from 2021 showed EF 15-20%, no recent echo here, will order BNP 1548 however past BNPs also more elevated Patient follows with Dr. Tariq Differentials include ACS, pericarditis, pneumonia, costochondritis. Patient not febrile and not meeting SIRS criteria -Trend troponins -Cardiac echo -Consulted Cardiology, appreciate recommendations -Lipid panel -Hemoglobin A1c -TSH level, T4 -Continue home bumex 2 mg qday #CHIKA on CKD On admission: Creatinine 2.4. Prior creatinine in past 2 years varies from 1.5- 2.6. Patient received 500 ml bolus in ED Uncertain if CHIKA or near current baseline Patient is endorsing regular intake over last few days CXR showed mild vascular congestion as evidenced by enlarged cardiac silhouette and perihilar infiltrate Patient is not appeared fluid overloaded, no peripheral edema and denying orthopnea -Strict I&O -Monitor CMP -Caution with fluids due to HFpEF status #History of afib EKG showed paced rate of 61, prolonged QT, left bundle branch block with first- degree AV block INR noted to be 6.1 -Hold home warfarin -Resume home amiodarone 200 mg BID -Resume home metoprolol succinate 50 mg qday -Keep K >4.0 and Mag >2.0 #History of type 2 diabetes On admission initial glucose 135. A1c 7.6 in 2022. Patient takes insulin glargine 21 U daily for diabetes at home. -Bedside blood glucose checks ACHS -Insulin lispro sliding scale sensitive, adjusted as necessary -Insulin glargine 20 U qday -Carb consistent low diet -A1c pending #History of hyperlipidemia -Resume home atorvastatin DVT prophylaxis: Warfarin GI prophylaxis: Not indicated Diet: Cardiac Cooper: None Lines: Peripheral IV Antibiotics: None CODE STATUS: FULL Reason for hospitalization: Chest pain, rule out ACS Patient plan of care was discussed with the attending physician, Dr. Nguyen. Laura Vazquez, PGY-2 Attending Provider Attestation/Addendum 59-year-old obese male patient with hypertension, congestive heart failure. Patient has not seen Dr. Tariq in a long time. He has pacemaker. He presented to the ER with chest pain relieved by nitroglycerin. Patient has elevated BNP. He has minimally elevated troponin level. Patient's list of medications provided by her daughter Sally (works machine packager at [employer]) to EMS earlier. PCP is Tereza Donaldson.
--- NOTE | 2024-09-12 07:39 | PC.NURSE ---
Patient is laying in gurney, no acute distress noted. Patient denies chest pain at this time, stating nitro that was given by ambulance personnel relieved the chest pain. Patient comes from home and is ambulatory w/o assistance but currently owns a walker. Patient updated with plan of admission, blood sugar obtained and call llight is within reach.
[2024-09-12 07:42] LABS: Partial Thromboplastin Time 40.3 Seconds (22.0-36.0)
[2024-09-12 07:53] LABS: INR 6.1 (0.9-1.3); Prothrombin Time 57.2 Seconds (9.0-12.2)
[2024-09-12 08:29] LABS: Basophils # (Auto) 0.1 Thou/mm3 (0.0-0.2); Basophils % (Auto) 1 % (0-2.5); Eosinophils # (Auto) 0.2 Thou/mm3 (0.0-0.5); Eosinophils % (Auto) 3 % (0-10); Hematocrit 32.4 % (41.0-53.0); Hemoglobin 11.3 g/dL (13.5-16.0); Immature Granulocytes % (Auto) 1 % (0-0); Immature Granulocytes Auto 0.03 Thou/mm3 (0.00-0.00); Lymphocytes # (Auto) 1.1 Thou/mm3 (1.0-4.8); Lymphocytes % (Auto) 18 % (10-50); Mean Corpuscular HGB Conc 34.9 g/dl (31.0-37.0); Mean Corpuscular Hemoglobin 33.8 pg (25.0-35.0); Mean Corpuscular Volume 97 fL (80-100); Monocytes # (Auto) 0.5 Thou/mm3 (0.0-0.8); Monocytes % (Auto) 8 % (0-12); Neutrophils # (Auto) 4.3 Thou/mm3 (1.8-7.7); Neutrophils % (Auto) 70 % (37-80); Nucleated Red Blood Cell % 0 /100 WBC (0); Platelet Count 167 Thou/mm3 (140-440); Red Blood Count 3.34 Miln/mm3 (4.50-5.90); White Blood Count 6.1 Thou/mm3 (3.8-10.6)
[2024-09-12] MEDS: PHYTONADIONE INJ 10 MG/ML AMP 2 MG IM (08:43)
--- NOTE | 2024-09-12 08:55 | PC.NURSE ---
Report given to Nely Rn, patient transferring to room 251.
[2024-09-12 09:02] LABS: Alanine Aminotransferase 36 U/L (10-49); Albumin, Serum 4.2 gm/dL (3.5-5.0); Albumin/Globulin Ratio 1.8 (1.2-2.2); Alkaline Phosphatase 42 U/L (46-116); Anion Gap 9 (7-16); Aspartate Amino Transferase 27 U/L (0-34); BUN/Creatinine Ratio 20 Ratio (12-20); Bilirubin,Total 0.5 mg/dL (0.3-1.2); Blood Urea Nitrogen 41 mg/dL (9-23); Calcium 9.4 mg/dL (8.3-10.6); Calcium (Corrected) 9.4 mg/dL (8.5-10.1); Carbon Dioxide 32.3 mMol/L (20.0-31.0); Cardiac Risk Estimate 3.9 RATIO (4.0-6.7); Chloride 99 mMol/L (98-107); Cholesterol 126 mg/dL (132-200); Creatinine (Component) 2.1 mg/dL (0.6-1.3); Estimated Creatinine Clearance 43.2 mL/min (>60); Free T4 (Free Thyroxine) 1.62 ng/dL (0.89-1.76); Globulin 2.3 gm/dL (2.3-3.5); Glucose 115 mg/dL (74-106); Glucose Estimated Average 137 mg/dL (80-131); HDL Cholesterol 32 mg/dL (40-60); Hemoglobin A1C 6.4 % Hgb (4.8-6.0); LDL Cholesterol,Calculated 71 mg/dL (0-130); Magnesium 1.7 mg/dL (1.6-2.6); Osmolality,Calculated 290 (275-295); Phosphorous 3.8 mg/dL (2.4-5.1); Potassium 3.2 mMol/L (3.4-5.1); Sodium 140 mMol/L (136-145); Thyroid Stimulating Hormone 6.21 uIU/mL (0.55-4.78); Total Protein 6.5 gm/dL (5.7-8.2); Triglycerides 117 mg/dL (30-150); Troponin I 0.043 ng/mL (0.0-0.045); eGFR 36 See Note
[2024-09-12 09:03] LABS: Prothrombin Time > 63.0 Seconds (9.0-12.2)
[2024-09-12] MEDS: AMIODARONE HCL 200 MG TABLET PO ×2 (09:56→20:12)
[2024-09-12] MEDS: BUMETANIDE 0.5 MG TABLET 2 MG PO (09:57)
[2024-09-12] MEDS: INSULIN GLARGINE (Lantus) 5 UNIT/0.05 ML (PER 5 UNITS) 20 UNIT SC (10:32)
[2024-09-12] MEDS: POTASSIUM CHLORIDE 10% 20 MEQ/15 ML UDC 40 MEQ PO (11:32)
[2024-09-12] MEDS: MAGNESIUM OXIDE 400 MG TABLET PO (11:32)
[2024-09-12] MEDS: INSULIN LISPRO (AdmeLOG) 1 UNIT/0.01 ML UNIT SC ×2 (11:32→16:23)
--- NOTE | 2024-09-12 12:18 | XR_ITS ---
Examination: Right foot 2 views Technique one AP lateral right foot portable 2 views Exam date and time: September 12, 2024 1254 hours INDICATIONS: Osteomyelitis redness swelling and pain this week FINDINGS: Amputation fourth digit No fracture Plantar posterior bony calcaneal spurs No verena cortical bone destruction IMPRESSION: No verena cortical bone destruction
[2024-09-12 14:40] LABS: Anion Gap 11 (7-16); BUN/Creatinine Ratio 18 Ratio (12-20); Blood Urea Nitrogen 42 mg/dL (9-23); Calcium 9.4 mg/dL (8.3-10.6); Carbon Dioxide 27.3 mMol/L (20.0-31.0); Chloride 97 mMol/L (98-107); Creatinine (Component) 2.3 mg/dL (0.6-1.3); Estimated Creatinine Clearance 38.3 mL/min (>60); Glucose 258 mg/dL (74-106); Osmolality,Calculated 289 (275-295); Potassium 4.1 mMol/L (3.4-5.1); Sodium 135 mMol/L (136-145); eGFR 32 See Note
[2024-09-12 15:08] LABS: Troponin I 0.037 ng/mL (0.0-0.045)
--- NOTE | 2024-09-12 16:51 | PD.RESPRO ---
Documentation for date of: 09/12/24 Subjective Subjective Interval history: No acute overnight events. Continued on nasal cannula, breathing comfortably. Denies fever, chills, headaches, chest pain, sob, cough, GI or urinary symptoms. Exam Vital Signs Temp Pulse Resp BP Pulse Ox O2 Del Method O2 Flow Rate 98.1 F 62 17 81/59 L 94 L Nasal Cannula 3 09/12/24 12:01 09/12/24 12:09/12/24 12:01 09/12/24 12:09/12/24 12:09/12/24 08:08 09/12/24 08:08 Narrative Exam General: Awake and in no acute distress. Conversational and non-toxic appearing. HEENT: Normocephalic, atraumatic, mucous membranes moist. No JVD Heart: Regular rate and rhythm, no murmurs. Pain upon palpation of the entire chest wall. Lungs: Bilateral crackles on exam, mild wheezing, no rhonchi. Abdomen: Soft, nondistended, nontender, positive bowel sounds. ?No guarding or rebound tenderness. Neurologic: Alert and oriented x3, no gross neurological deficit, and patient able to move all 4 extremities. Extremities: No lower extremity edema bilaterally Skin: No rash or ecchymoses. Objective Labs 09/12/24 08:17 09/12/24 13:45 Labs: Laboratory Results - last 24 hr 09/11/24 09/11/24 09/11/24 21:40 23:06 23:33 WBC 7.4 RBC 3.69 L Hgb 12.3 L Hct 35.8 L MCV 97 MCH 33.3 MCHC 34.4 RDW Std Deviation 51.1 H Plt Count 227 Neut % (Auto) 65 Lymph % (Auto) 22 [place] % (Auto) 10 Eos % (Auto) 3 Baso % (Auto) 1 Neut # (Auto) 4.8 Lymph # (Auto) 1.6 [place] # (Auto) 0.7 Eos # (Auto) 0.2 Baso # (Auto) 0.1 Immature Gran # (Auto) 0.02 H Absolute Nucleated RBC 0.00 Immature Gran % 0 Nucleated RBC % 0 PT 57.2 H* INR 6.1 H* APTT 40.3 H Sodium 138 Potassium 3.8 Chloride 97 L Carbon Dioxide 27.3 Anion Gap 14 BUN 40 H Creatinine 2.4 H Estim Creat Clear Calc 37.8 L eGFR 30 L BUN/Creatinine Ratio [address] Glu mg/dL Hemoglobin A1c Calculated Osmolality 287 Calcium 10.0 Corrected Calcium 10.0 Phosphorus Magnesium 1.7 Total Bilirubin 0.5 AST 10 ALT 38 Alkaline Phosphatase 48 Lactate Dehydrogenase 224 Troponin I 0.041 B-Natriuretic Peptide 1548 H* Total Protein 7.3 Albumin 4.8 Globulin 2.5 Albumin/Globulin Ratio 1.9 Triglycerides Cholesterol LDL Cholesterol, Calc HDL Cholesterol Cholesterol/HDL Ratio TSH Free T4 Ur Collection Type Clean Catch Urine Color Lt-Yellow Urine Clarity Clear Urine pH 6.0 Ur Specific [place] 1.015 Urine Protein Negative Urine Glucose (UA) Negative Urine Ketones Negative Urine Blood Negative Urine Nitrite Negative Urine Bilirubin Negative Urine Urobilinogen (Auto) Negative Ur Leukocyte Esterase Negative Urine RBC < 1 Urine WBC 1 Ur Squamous Epith Cells 0 Urine Bacteria None Hyaline Casts 1 Urine Opiates Screen Negative Urine Fentanyl Screen Negative Ur Barbiturates Screen Negative U Amphetamin/Meth Scrn Negative U Benzodiazepines Scrn Negative U Cocaine Metab Screen Negative U Marijuana (THC) Screen Negative Blood Type A Positive Antibody Screen NEGATIVE Blood Bank Wristband ID Yes 09/12/24 09/12/24 09/12/24 02:00 08:17 13:45 WBC 6.1 RBC 3.34 L Hgb 11.3 L Hct 32.4 L MCV 97 MCH 33.8 MCHC 34.9 RDW Std Deviation 51.0 H Plt Count 167 D Neut % (Auto) 70 Lymph % (Auto) 18 [place] % (Auto) 8 Eos % (Auto) 3 Baso % (Auto) 1 Neut # (Auto) 4.3 Lymph # (Auto) 1.1 [place] # (Auto) 0.5 Eos # (Auto) 0.2 Baso # (Auto) 0.1 Immature Gran # (Auto) 0.03 H Absolute Nucleated RBC 0.00 Immature Gran % 1 H Nucleated RBC % 0 PT > 63.0 H* D INR APTT Sodium 140 135 L Potassium 3.2 L D 4.1 D Chloride 99 97 L Carbon Dioxide 32.3 H 27.3 Anion Gap 9 11 BUN 41 H 42 H Creatinine 2.1 H 2.3 H Estim Creat Clear Calc 43.2 L 38.3 L eGFR 36 L 32 L BUN/Creatinine Ratio 20 18 Glucose [address] Glu mg/dL 137 H Hemoglobin A1c 6.4 H Calculated Osmolality 290 289 Calcium 9.4 9.4 Corrected Calcium 9.4 Phosphorus 3.8 Magnesium 1.7 Total Bilirubin 0.5 AST 27 ALT 36 Alkaline Phosphatase 42 L Lactate Dehydrogenase Troponin I 0.048 H* 0.043 0.037 B-Natriuretic Peptide Total Protein 6.5 Albumin 4.2 D Globulin 2.3 Albumin/Globulin Ratio 1.8 Triglycerides 117 Cholesterol 126 L LDL Cholesterol, Calc 71 HDL Cholesterol 32 L Cholesterol/HDL Ratio 3.9 L TSH 6.21 H Free T4 1.62 Ur Collection Type Urine Color Urine Clarity Urine pH Ur Specific [place] Urine Protein Urine Glucose (UA) Urine Ketones Urine Blood Urine Nitrite Urine Bilirubin Urine Urobilinogen (Auto) Ur Leukocyte Esterase Urine RBC Urine WBC Ur Squamous Epith Cells Urine Bacteria Hyaline Casts Urine Opiates Screen Urine Fentanyl Screen Ur Barbiturates Screen U Amphetamin/Meth Scrn U Benzodiazepines Scrn U Cocaine Metab Screen U Marijuana (THC) Screen Blood Type Antibody Screen Blood Bank Wristband ID Quality Measures Quality Measures VTE therapy Assessment & Plan Assessment Current Active Medications: Generic Name Dose Route Start Last Admin Trade Name Freq PRN Reason Stop Dose Admin Acetaminophen 650 mg 09/12/24 05:50 Acetaminophen 325 Mg Tablet PO 10/12/24 05:49 Q6H PRN Fever >100.4 or Pain Amiodarone HCl 200 mg 09/12/24 09:00 09/12/24 09:56 Amiodarone Hcl 200 Mg Tablet PO 10/12/24 08:59 200 mg BID JUWAN Administration Atorvastatin Calcium 40 mg 09/12/24 21:00 Atorvastatin Calcium 20 Mg Tablet PO 10/12/24 20:59 HS JUWAN Bumetanide 2 mg 09/13/24 09:00 Bumetanide Inj 0.25 Mg/Ml Vial 4 Ml IVP 10/13/24 08:59 QDAY JUWAN Dextrose 25 ml 09/12/24 05:59 Dextrose 50%-Water Inj 50 Ml Syringe IV 10/12/24 05:58 Q15MIN PRN BG 50-70 responsive npo pt Dextrose 50 ml 09/12/24 05:59 Dextrose 50%-Water Inj 50 Ml Syringe IV 10/12/24 05:58 Q15MIN PRN BG <50 OR BG <70 & pt unresponsive Glucagon 1 mg 09/12/24 05:59 Glucagon Inj 1 Mg Vial IM Q15MIN PRN BG <70, and no IV access Insulin Glargine 20 unit 09/12/24 09:00 09/12/24 10:32 Insulin Glargine (Lantus) 5 Unit/0.05 Ml (Per 5 Units) SC 10/12/24 08:59 20 unit QDAY JUWAN Administration Insulin Human Lispro 0 unit 09/12/24 07:30 09/12/24 16:23 Insulin Lispro (Admelog) 1 Unit/0.01 Ml Unit SC 10/12/24 07:29 1 unit ACHS JUWAN Administration Protocol Magnesium Oxide 400 mg 09/12/24 10:45 09/12/24 11:32 Magnesium Oxide 400 Mg Tablet PO 10/12/24 10:44 400 mg QDAY JUWAN Administration Metoprolol Succinate 50 mg 09/12/24 09:00 09/12/24 10:26 Metoprolol Succinate Xl 25 Mg Tabcr PO 10/12/24 08:59 Not Given QDAY JUWAN Warfarin Sodium 5 mg 09/12/24 12:00 Warfarin 1 Mg Tablet PO 09/26/24 11:59 QDAY@1200 [facility] Plan In summary: 59-year-old male with PMHx of HFrEF s/p AICD/pacemaker, A-fib on WARFARIN, HLD, and insulin-dependent T2DM, presenting with acute chest pain, admitted for atypical chest pain and cardiac workup. Patient also has supratherapeutic INR as result of WARFARIN. Pending INR normalization, cardiology recommendation. Recommendations from cardiology. Atypical chest pain Concern for ACS History of HFrEF s/p AICD History of dilated cardiomyopathy Mild troponinemia, likely type II (resolved) Hyperlipidemia Presenting with left-sided substernal chest pain improved with ASPIRIN and NITROGLYCERIN. Mild troponin elevation of 0.048, normalized on repeat. EKG with LBBB (present on EKG in 2021), first-degree AV block, no acute ST changes. BNP 1548 on admission, history of previously elevated BNP. Bibasilar crackles on exam. No LE edema or JVD. POCUS showed normal IVC, no paracardial effusion. CXR mild vascular contraction, no pneumonia or pulmonary edema. ECHO EF 15%, severe global hypokinesis, severe systolic dysfunction, dilated left ventricle. Patient not currently following up with cardiology. TSH 6.21, T4 free 1.60, A1c 6.4, TG 117, LDL 71, cholesterol 126, HLD 32. Will start high-dose statin, will resume GDMT after cardiology evaluation. ? Continue home BUMEX 2 mg IVP q. day ? Continue ATORVASTATIN 80 mg daily ? Holding home ENTRESTO 1 tablet BID ? Holding home GLIPIZIDE 5 mg BID ? Holding home FUROSEMIDE 40 mg BID ? Physical therapy ? Pending cardiology recommendations Prerenal CHIKA CKD stage IIIb Patient CR 2.3 (baseline 1.5?2.1), GFR 32 (baseline 30s). Likely prerenal, cardiorenal syndrome. Anticipate improvement with diuresis ? Renally dose meds, avoid overdiuresis and NEPHROTOXINS Supratherapeutic INR History of afib, rate controlled WARFARIN anticoag EKG showed paced rate of 61, prolonged QT, left bundle branch block with first-degree AV block. Patient on home WARFARIN, not following up with cardiology, not checking INR regularly. Admission INR 6.1, PT 63, Hgb 11.3 near baseline. ? S/p VITAMIN K 2 mg x 1 ? Holding home WARFARIN ? Continue home AMIODARONE 200 mg BID ? Holding home METOPROLOL 50 mg XL 2/2 hypotension ? Maintain K >4, mag >2 ? Pending cardiology recommendations Insulin-dependent T2DM Right foot ulcer A1c 6.4 this visit, GLUCOSE 258. Right foot x-ray no cortical bone destruction. ? Continue glargine 20 units daily ? Continue INSULIN sliding scale ? Accu-Cheks Health maintenance Diet: Cardiac, CHO consistent GI prophylaxis: Not indicated DVT prophylaxis: LOVENOX Antibiotics: Not indicated CODE STATUS: Full code Disposition: Pending cardiology recommendations Patient case was discussed with attending, Dr. Nghia Pena DO and senior residents Dr. Kaplan and Dr. Styles. Tara Elam DO PGYI Attending Provider Attestation/Addendum I have discussed and was present for the essential components of the history, physical examination, diagnosis, and treatment plan with the resident. I agree with the patient's care as documented by the resident and amended herein by me. Олег Pena DO. Patient seen and evaluated this AM. In Short, patient is a 59-year-old male with significant past medical history of HFrEF status post AICD, most recent EF this visit, 15%, atrial fibrillation on warfarin with supratherapeutic INR, hyperlipidemia, DM2 who presented with acute chest pain subsequently admitted for ACS rule out and possible acute decompensated heart failure. Interval Hx: 09/12/2024: No acute events overnight, blood pressure soft, 78/63 mmHg however MAP above 65, BNP on admission 1548, troponins have normalized, the latest being 0.037. Repeat echo today demonstrated dilated LV, severe systolic dysfunction, severe global hypokinesis with an estimated EF of 15%. Mild RV dilation, mild RV dysfunction, and estimated RVSP at 48, severe LA dilation, mild RA dilation, mild ascending aorta dilation, severe calcific stenosis with a mean gradient of 34, mild mitral regurgitation, mild aortic regurgitation, mild tricuspid regurgitation and a dilated IVC. Chest x-ray on admission demonstrated mild vascular congestion however no pneumonia was noted. We also performed an x-ray of the patient's right foot today for what appeared to be a more chronic foot wound however no cortical bone destruction was demonstrated SIGNIFICANT PROBLEM LIST/PLAN: #Chest pain #Elevated troponin, likely secondary to demand ischemia #Acute decompensated heart failure #Acute hypoxic respiratory failure secondary to above #HFrEF, EF 15% #CHIKA on CKD, likely cardiorenal syndrome #Supratherapeutic INR, 6.1 on arrival #Right diabetic foot ulcer Continue diuresis today with Bumex IV 2 mg daily, cardiology consulted, appreciate recommendations. Will restart home medications as appropriate however will hold patient's metoprolol, Entresto, spironolactone in setting of hypotension. If MAP drops below 60-65, may need dobutamine drip. Will renally dose medications as appropriate. Although this document has been carefully reviewed, there may still be some phonetic and other typographical errors. These errors are purely grammatical due to imperfections in the software program and should not be construed in any way to compromise the substance of the patient's medical care during this visit.
[2024-09-12] MEDS: ATORVASTATIN CALCIUM 20 MG TABLET 80 MG PO (18:33)
[2024-09-12] MEDS: PHYTONADIONE INJ 10 MG/ML AMP SC (20:51)
--- NOTE | 2024-09-12 23:11 | ESCONSULT_ITS ---
RE: ARCHIE WILDER : 1965 DATE OF CONSULTATION: 09/12/2024 CONSULTING PHYSICIANS: Hospitalist. REASON FOR CONSULTATION: Evaluation of high INR, congestive heart failure, shortness of breath and cardiomyopathy. HISTORY OF PRESENT ILLNESS: The patient is a 59-year-old male, very well known to me with longstanding history of nonischemic cardiomyopathy diagnosed more than two decades ago, has had a history of DOPE SPRAYER defibrillator implantation and has had [id number] aortic stenosis for the last three or four years and atrial fibrillation and cardiac thrombi, on warfarin. Presented to the hospital with chief complaint of pressure-like left-sided chest discomfort, 04/20. The patient took a nitroglycerin and aspirin, came to the hospital emergency room. The initial workup shows PT/INR was quite high, more than 60 prothrombin time, troponin was _004_. BNP 3280. EKG showed evidence of 100% pacemaker rhythm. . The patient is feeling a little better. He is still having shortness of breath. He was given a small dose of vitamin K, it did not make any difference. PAST MEDICAL HISTORY: Significant for hypertension, type 2 diabetes mellitus, requiring multiple medications, nonischemic cardiomyopathy, chronic systolic heart failure, EF, baseline around 20%, history of cardiac thrombi and atrial fibrillation. MEDICATIONS AT HOME: Medication list includes, 1. He is on Warfarin 5 mg daily. 2. Glipizide 5 mg daily. 3. Insulin and lispro for diabetes mellitus. 4. Metoprolol 50 mg daily. 5. Metformin 1000 mg twice daily. 6. Furosemide 40 mg daily. 7. Glyburide 2.5 daily. 8. Inhalers 9. Lipitor. 10. Sacubitril and valsartan, Entresto 24/26 mg one tablet twice daily. 11. Bumetanide 2 mg once a day. 12. Spironolactone 25 mg once a day. SOCIAL HISTORY: The patient lives with a daughter who supports him. Does not smoke, drink alcoholic beverages. FAMILY HISTORY: Noncontributory. PHYSICAL EXAMINATION: General: well nourished__ male who appears comfortable _. Vital Signs: Remains stable. His heart rate is about 64. Blood pressure 94/73, respirations _16 temperature normal. HEENT: Head is atraumatic, normocephalic. ENT, normal. Neck: Supple. JVD is present. Carotid pulse felt but no bruits. Chest: Symmetrical. Lungs: Decrease breath sounds. Heart: S1, S2 distant. Abdomen: Thin and soft. Extremities: Mild edema on both feet. Genitourinary and Rectal: Not performed. Neurologic: Normal. DIAGNOSTIC DATA: Electrocardiogram shows 100% ventricular paced rhythm. Echocardiogram I reviewed today showed worsening of severe aortic stenosis. Aortic velocity increased to 3.8 m/sec, peak gradient of 54 mmHg, mean gradient 34 mmHg __ severe and critical evidence of stenosis and ejection fraction only 15%. In the presence of severe LV dysfunction, this gradient is quite significant . Previous echo two years ago showed ejection fraction was about 25%, but aortic stenosis is only moderate. Aortic velocity of 2.5 meters per second. There is significant progression of aortic stenosis. IMPRESSION/ASSESSMENT: 1. Acute decompensated congestive heart failure. 2. Atypical chest pain, possibly noncardiac chest pain versus secondary to aortic stenosis. The patient had a negative coronary angiogram in the past. 3. Nonischemic cardiomyopathy, chronic systolic heart failure, severe LV dysfunction, functional class IV, ejection fraction of 15%. 4. Severe calcific aortic stenosis with presence of low ejection fraction, possibly suggesting critical aortic stenosis. 5. Elevated prothrombin time due to warfarin recommendation. RECOMMENDATIONS: I recommend giving vitamin K to reverse and make the INR back to normal. The patient has significant and severe worsening of the aortic stenosis in two years rapid progression with a low ejection fraction, suggesting he has a very much critical aortic stenosis. The patient may benefit from TAVR WILL BE discussed later on, but once INR comes down to normal range, I will do right and left heart cardiac catheterization coronary angiogram and assist if he is a candidate for TAVR procedure. We would like to thank you for referring this patient for cardiac evaluation. We will be glad to follow the patient. DT: 21:27:38 TT: 22:35:00 Ref: [id number] - TID: [id number] MTDD
[2024-09-13] VITALS (11 sets, daily range): BP systolic 83–100; BP diastolic 52–70; PULSE 60–85; RESP 12–20; TEMP 35.6–36.3; O2SAT 94–100; BMI 31.1
[2024-09-13 08:10] LABS: Basophils % (Auto) 1 % (0-2.5); Eosinophils # (Auto) 0.2 Thou/mm3 (0.0-0.5); Eosinophils % (Auto) 3 % (0-10); Hematocrit 37.2 % (41.0-53.0); Immature Granulocytes % (Auto) 0 % (0-0); Immature Granulocytes Auto 0.02 Thou/mm3 (0.00-0.00); Lymphocytes # (Auto) 1.1 Thou/mm3 (1.0-4.8); Lymphocytes % (Auto) 18 % (10-50); Mean Corpuscular HGB Conc 34.9 g/dl (31.0-37.0); Mean Corpuscular Hemoglobin 34.1 pg (25.0-35.0); Mean Corpuscular Volume 98 fL (80-100); Monocytes # (Auto) 0.5 Thou/mm3 (0.0-0.8); Monocytes % (Auto) 7 % (0-12); Neutrophils # (Auto) 4.4 Thou/mm3 (1.8-7.7); Neutrophils % (Auto) 71 % (37-80); Nucleated Red Blood Cell % 0 /100 WBC (0); Platelet Count 186 Thou/mm3 (140-440); RDW Standard Deviation 50.9 fL (35.1-43.9); Red Blood Count 3.81 Miln/mm3 (4.50-5.90); White Blood Count 6.2 Thou/mm3 (3.8-10.6)
[2024-09-13 08:37] LABS: Alanine Aminotransferase 43 U/L (10-49); Albumin, Serum 4.9 gm/dL (3.5-5.0); Albumin/Globulin Ratio 1.8 (1.2-2.2); Alkaline Phosphatase 44 U/L (46-116); Anion Gap 10 (7-16); Aspartate Amino Transferase 30 U/L (0-34); BUN/Creatinine Ratio 19 Ratio (12-20); Bilirubin,Total 0.8 mg/dL (0.3-1.2); Blood Urea Nitrogen 36 mg/dL (9-23); Calcium 10.3 mg/dL (8.3-10.6); Calcium (Corrected) 10.3 mg/dL (8.5-10.1); Carbon Dioxide 30.8 mMol/L (20.0-31.0); Chloride 96 mMol/L (98-107); Creatinine (Component) 1.9 mg/dL (0.6-1.3); Estimated Creatinine Clearance 46.4 mL/min (>60); Globulin 2.7 gm/dL (2.3-3.5); Glucose 143 mg/dL (74-106); Magnesium 1.9 mg/dL (1.6-2.6); Osmolality,Calculated 284 (275-295); Phosphorous 3.8 mg/dL (2.4-5.1); Potassium 3.8 mMol/L (3.4-5.1); Sodium 137 mMol/L (136-145); Total Protein 7.6 gm/dL (5.7-8.2); eGFR 40 See Note
[2024-09-13 09:06] LABS: INR 4.3 (0.9-1.3)
--- NOTE | 2024-09-13 09:47 | PC.SS ---
Patient is alert/oriented. Admitted for chest pain. Patient resides at home with family. Patient was admitted for chest pain. Patient states he's independent with ADL's. He has hx: type 2 diabetes. Daughter at bedside, states patient had a right foot ulcer that he had been seen at the [facility] care center. Patient was last seen 2 months ago. Patient has a walker and a shower chair at home. His p.c.p. is Dr. Soni and he sees Tereza Donaldson NP. His last appt. was 2 years ago. Patient has also seen Dr. Bhakta in the past. Patient pharmacy: [facility]. Patient family to provide transportation assistance. Patient alt medical decision maker is his daughter, Sally. Discharge plan is to return home.
[2024-09-13] MEDS: BUMETANIDE INJ 0.25 MG/ML VIAL 4 ML 2 MG IVP (09:55)
[2024-09-13] MEDS: INSULIN GLARGINE (Lantus) 5 UNIT/0.05 ML (PER 5 UNITS) 20 UNIT SC (09:57)
[2024-09-13] MEDS: MAGNESIUM OXIDE 400 MG TABLET PO (09:57)
[2024-09-13] MEDS: AMIODARONE HCL 200 MG TABLET PO ×2 (09:57→20:22)
[2024-09-13 11:12] LABS: Prothrombin Time 42.7 Seconds (9.0-12.2)
[2024-09-13] MEDS: INSULIN LISPRO (AdmeLOG) 1 UNIT/0.01 ML UNIT SC ×3 (11:43→20:21)
--- NOTE | 2024-09-13 12:20 | PC.PT ---
PT eval only. Patient is xI with bed mobility, transfers, and ambulation with no DME. Patient is clear to ambulate to the bathroom and in the halls with no DME and no assistance. Patient is at his PLOF. RN notified.
--- NOTE | 2024-09-13 13:18 | PD.RESPRO ---
Documentation for date of: 09/13/24 Subjective Subjective Interval history: No acute overnight events. Not currently having any chest discomfort or palpitations. Pending workup with physical therapy. Denies fever, chills, headaches, chest pain, sob, cough, GI or urinary symptoms. Exam Vital Signs Temp Pulse Resp BP Pulse Ox O2 Del Method O2 Flow Rate 97.3 F 63 20 91/66 95 Room Air 0.5 09/13/24 12:00 09/13/24 12:09/13/24 12:09/13/24 12:09/13/24 12:09/13/24 12:09/13/24 10:12 Narrative Exam General: Awake and in no acute distress. Conversational and non-toxic appearing. HEENT: Normocephalic, atraumatic, mucous membranes moist. No JVD Heart: Regular rate and rhythm, no murmurs. Pain upon palpation of the entire chest wall. Lungs: Improving bilateral crackles on exam, mild wheezing, no rhonchi. Abdomen: Soft, nondistended, nontender, positive bowel sounds. ?No guarding or rebound tenderness. Neurologic: Alert and oriented x3, no gross neurological deficit, and patient able to move all 4 extremities. Extremities: No lower extremity edema bilaterally Skin: No rash or ecchymoses. Objective Labs 09/14/24 05:26 09/14/24 05:26 Labs: Laboratory Results - last 24 hr 09/12/24 09/13/24 13:45 07:39 WBC 6.2 RBC 3.81 L Hgb 13.0 L Hct 37.2 L MCV 98 MCH 34.1 MCHC 34.9 RDW Std Deviation 50.9 H Plt Count 186 Neut % (Auto) 71 Lymph % (Auto) 18 [place] % (Auto) 7 Eos % (Auto) 3 Baso % (Auto) 1 Neut # (Auto) 4.4 Lymph # (Auto) 1.1 [place] # (Auto) 0.5 Eos # (Auto) 0.2 Baso # (Auto) 0.0 Immature Gran # (Auto) 0.02 H Absolute Nucleated RBC 0.00 Immature Gran % 0 Nucleated RBC % 0 PT 42.7 H* D INR 4.3 H* Sodium 135 L 137 Potassium 4.1 D 3.8 Chloride 97 L 96 L Carbon Dioxide 27.3 30.8 Anion Gap 11 10 BUN 42 H 36 H Creatinine 2.3 H 1.9 H Estim Creat Clear Calc 38.3 L 46.4 L eGFR 32 L 40 L BUN/Creatinine Ratio 18 19 Glucose 258 H D 143 H D Calculated Osmolality 289 284 Calcium 9.4 10.3 Corrected Calcium 10.3 H Phosphorus 3.8 Magnesium 1.9 Total Bilirubin 0.8 AST 30 ALT 43 Alkaline Phosphatase 44 L Troponin I 0.037 Total Protein 7.6 Albumin 4.9 D Globulin 2.7 Albumin/Globulin Ratio 1.8 Quality Measures Quality Measures VTE prophylaxis Assessment & Plan Assessment Current Active Medications: Generic Name Dose Route Start Last Admin Trade Name Freq PRN Reason Stop Dose Admin Acetaminophen 650 mg 09/12/24 05:50 Acetaminophen 325 Mg Tablet PO 10/12/24 05:49 Q6H PRN Fever >100.4 or Pain Amiodarone HCl 200 mg 09/12/24 09:00 09/13/24 09:57 Amiodarone Hcl 200 Mg Tablet PO 10/12/24 08:59 200 mg BID JUWAN Administration Atorvastatin Calcium 80 mg 09/12/24 17:30 09/12/24 18:33 Atorvastatin Calcium 20 Mg Tablet PO 10/12/24 17:29 80 mg HS JUWAN Administration Bumetanide 2 mg 09/13/24 09:00 09/13/24 09:55 Bumetanide Inj 0.25 Mg/Ml Vial 4 Ml IVP 10/13/24 08:59 2 mg QDAY JUWAN Administration Dextrose 25 ml 09/12/24 05:59 Dextrose 50%-Water Inj 50 Ml Syringe IV 10/12/24 05:58 Q15MIN PRN BG 50-70 responsive npo pt Dextrose 50 ml 09/12/24 05:59 Dextrose 50%-Water Inj 50 Ml Syringe IV 10/12/24 05:58 Q15MIN PRN BG <50 OR BG <70 & pt unresponsive Glucagon 1 mg 09/12/24 05:59 Glucagon Inj 1 Mg Vial IM Q15MIN PRN BG <70, and no IV access Insulin Glargine 20 unit 09/12/24 09:00 09/13/24 09:57 Insulin Glargine (Lantus) 5 Unit/0.05 Ml (Per 5 Units) SC 10/12/24 08:59 20 unit QDAY JUWAN Administration Insulin Human Lispro 0 unit 09/12/24 07:30 09/13/24 11:43 Insulin Lispro (Admelog) 1 Unit/0.01 Ml Unit SC 10/12/24 07:29 2 unit ACHS JUWAN Administration Protocol Magnesium Oxide 400 mg 09/12/24 10:45 09/13/24 09:57 Magnesium Oxide 400 Mg Tablet PO 10/12/24 10:44 400 mg QDAY JUWAN Administration Metoprolol Succinate 50 mg 09/12/24 09:00 09/12/24 10:26 Metoprolol Succinate Xl 25 Mg Tabcr PO 10/12/24 08:59 Not Given QDAY JUWAN Warfarin Sodium 5 mg 09/12/24 12:00 Warfarin 1 Mg Tablet PO 09/26/24 11:59 QDAY@1200 [facility] Plan In summary: 59-year-old male with PMHx of HFrEF s/p AICD/pacemaker, A-fib on WARFARIN, HLD, and insulin-dependent T2DM, presenting with acute chest pain, admitted for atypical chest pain and cardiac workup. Patient also has supratherapeutic INR as result of WARFARIN. Evaluated by cardiology who recommended cath and possible TAVR once INR normalized, INR 4.3 today. CHIKA improving. Appreciate recommendations from cardiology. Atypical chest pain Concern for ACS History of HFrEF s/p AICD History of dilated cardiomyopathy Mild troponinemia, likely type II (resolved) Hyperlipidemia Presenting with left-sided substernal chest pain improved with ASPIRIN and NITROGLYCERIN. Mild troponin elevation of 0.048, normalized on repeat. EKG with LBBB (present on EKG in 2021), first-degree AV block, no acute ST changes. BNP 1548 on admission, history of previously elevated BNP. Bibasilar crackles on exam. No LE edema or JVD. POCUS showed normal IVC, no paracardial effusion. CXR mild vascular contraction, no pneumonia or pulmonary edema. ECHO EF 15%, severe global hypokinesis, severe systolic dysfunction, dilated left ventricle. Patient not currently following up with cardiology. TSH 6.21, T4 free 1.60, A1c 6.4, TG 117, LDL 71, cholesterol 126, HLD 32. Continued on BUMEX, 2.5 L urine output, 1.6 negative total, SOB improving, lung exam minimal crackles. Echo showed EF 15%, global hypokinesia, dilated LV. Cardiology recommended cath and possible TAVR once INR normalized. Holding GDMT for now. ? Continue BUMEX 1 mg IVP BID ? Continue ATORVASTATIN 80 mg daily ? Holding home ENTRESTO 1 tablet BID ? Holding home GLIPIZIDE 5 mg BID ? Holding home FUROSEMIDE 40 mg BID ? Physical therapy ? Pending cardiology recommendations Prerenal CHIKA CKD stage IIIb Admitted with CR 2.3, improving with diuresis. Currently, CR 1.9, GFR 32, near baseline. Likely prerenal, will continue to improve with diuresis. ? Renally dose meds, avoid overdiuresis and NEPHROTOXINS Supratherapeutic INR History of afib, rate controlled WARFARIN anticoag EKG showed paced rate of 61, prolonged QT, left bundle branch block with first-degree AV block. Patient on home WARFARIN, not following up with cardiology, not checking INR regularly. No indication of active bleed Admission INR 6.1, now INR 4.3 after total 12 mg VITAMIN K. ? Holding home WARFARIN ? Continue home AMIODARONE 200 mg BID ? Holding home METOPROLOL 50 mg XL 2/2 hypotension ? Maintain K >4, mag >2 ? Pending cardiology recommendations Insulin-dependent T2DM Right foot ulcer A1c 6.4 this visit, GLUCOSE stable. Right foot x-ray no cortical bone destruction. ? Continue glargine 20 units daily ? Continue INSULIN sliding scale ? Accu-Cheks Health maintenance Diet: Cardiac, CHO consistent GI prophylaxis: Not indicated DVT prophylaxis: Holding anticoag, elevated INR Antibiotics: Not indicated CODE STATUS: Full code Disposition: Pending cardiology recommendations Patient case was discussed with attending, Dr. Nghia Pena DO and senior residents Nahed Elam DO PGYI Senior Resident Attestation: The patient was negative by 2.1 L this morning. We will continue to diurese the patient and once his INR is within 2-3 range, will undergo cardiac cath, for possible TAVR. I discussed with and supervised the international affairs vice president physician involved in the care of this patient. I personally saw and examined the patient and discussed the assessment and plan with the entire medicine team, including my attending. I agree with the assessment and plan as documented above. Martin Dockery MD PGY2 Internal Medicine Attending Provider Attestation/Addendum I have discussed and was present for the essential components of the history, physical examination, diagnosis, and treatment plan with the resident. I agree with the patient's care as documented by the resident and amended herein by me. Олег Pena DO. Although this document has been carefully reviewed, there may still be some phonetic and other typographical errors. These errors are purely grammatical due to imperfections in the software program and should not be construed in any way to compromise the substance of the patient's medical care during this visit.
--- NOTE | 2024-09-13 14:37 | ESPR_ITS ---
<Statement entered by Ann Tariq MD - 09/14/24 14:48> I personally examined the patient patient is feeling much better now not having chest pain shortness of breath INR is coming down slowly no bleeding issues chest pain resolved heart failure well compensated patient will be kept for another day possible discharge home tomorrow agree with the treatment plan recommendation as documented by PGY 2 Dr. Marinelli Documentation for date of: 09/13/24 Subjective Subjective Interval history: No acute overnight events reported. Patient's blood pressure range has been 83- 100 over 50s to 60s in the last 24 hours. Patient received total of of vitamin K, 10 mg subcu x 1 as well as 2 mg IM x 1. Patient seen and examined at bedside. Patient denies any chest pain, shortness of breath, palpitations. Patient states that he was able to walk down the hallway and use the restroom, and denied any exertional chest pain or shortness of breath. Patient is currently on room air, saturating 99%. Labs showed significant improvement in INR from 6.1-4.3. Exam Vital Signs Temp Pulse Resp BP Pulse Ox O2 Del Method O2 Flow Rate 97.3 F 63 20 91/66 95 Room Air 0.5 09/13/24 12:00 09/13/24 12:00 09/13/24 12:00 09/13/24 12:00 09/13/24 12:00 09/13/24 12:00 09/13/24 10:12 Narrative Exam General Appearance: Pt in NAD laying in bed. Able to answer questions, pleasant, and well-nourished. HEENT: NC/AT, no scleral icterus, no conjunctival pallor, MMM Lungs: Bibasilar crackles but no wheezing appreciated. No sensory muscle use noted. CVS: RRR, S1/S2 heard, no murmurs or rubs appreciated ABD: Soft, non-tender, non-distended, BS + in all 4 quadrants EXT: no deformity/edema/lesions/cyanosis/clubbing, radial pulses 2+ BL, DP pulses 2 + BL SKIN: Skin exam normal without any rashes. Neuro: A&O x 3. No gross neurological deficits. Motor and sensory grossly intact in B/L UL and LL. Psych: Appropriate mood and affect Objective Labs 09/13/24 07:39 09/13/24 07:39 Labs: Laboratory Results - last 24 hr 09/12/24 09/13/24 13:45 07:39 WBC 6.2 RBC 3.81 L Hgb 13.0 L Hct 37.2 L MCV 98 MCH 34.1 MCHC 34.9 RDW Std Deviation 50.9 H Plt Count 186 Neut % (Auto) 71 Lymph % (Auto) 18 [place] % (Auto) 7 Eos % (Auto) 3 Baso % (Auto) 1 Neut # (Auto) 4.4 Lymph # (Auto) 1.1 [place] # (Auto) 0.5 Eos # (Auto) 0.2 Baso # (Auto) 0.0 Immature Gran # (Auto) 0.02 H Absolute Nucleated RBC 0.00 Immature Gran % 0 Nucleated RBC % 0 PT 42.7 H* D INR 4.3 H* Sodium 135 L 137 Potassium 4.1 D 3.8 Chloride 97 L 96 L Carbon Dioxide 27.3 30.8 Anion Gap 11 10 BUN 42 H 36 H Creatinine 2.3 H 1.9 H Estim Creat Clear Calc 38.3 L 46.4 L eGFR 32 L 40 L BUN/Creatinine Ratio 18 19 Glucose 258 H D 143 H D Calculated Osmolality 289 284 Calcium 9.4 10.3 Corrected Calcium 10.3 H Phosphorus 3.8 Magnesium 1.9 Total Bilirubin 0.8 AST 30 ALT 43 Alkaline Phosphatase 44 L Troponin I 0.037 Total Protein 7.6 Albumin 4.9 D Globulin 2.7 Albumin/Globulin Ratio 1.8 Quality Measures Quality Measures VTE prophylaxis Assessment & Plan Assessment Current Active Medications: Generic Name Dose Route Start Last Admin Trade Name Freq PRN Reason Stop Dose Admin Acetaminophen 650 mg 09/12/24 05:50 Acetaminophen 325 Mg Tablet PO 10/12/24 05:49 Q6H PRN Fever >100.4 or Pain Amiodarone HCl 200 mg 09/12/24 09:00 09/13/24 09:57 Amiodarone Hcl 200 Mg Tablet PO 10/12/24 08:59 200 mg BID JUWAN Administration Atorvastatin Calcium 80 mg 09/12/24 17:30 09/12/24 18:33 Atorvastatin Calcium 20 Mg Tablet PO 10/12/24 17:29 80 mg HS JUWAN Administration Bumetanide 2 mg 09/13/24 09:00 09/13/24 09:55 Bumetanide Inj 0.25 Mg/Ml Vial 4 Ml IVP 10/13/24 08:59 2 mg QDAY JUWAN Administration Dextrose 25 ml 09/12/24 05:59 Dextrose 50%-Water Inj 50 Ml Syringe IV 10/12/24 05:58 Q15MIN PRN BG 50-70 responsive npo pt Dextrose 50 ml 09/12/24 05:59 Dextrose 50%-Water Inj 50 Ml Syringe IV 10/12/24 05:58 Q15MIN PRN BG <50 OR BG <70 & pt unresponsive Glucagon 1 mg 09/12/24 05:59 Glucagon Inj 1 Mg Vial IM Q15MIN PRN BG <70, and no IV access Insulin Glargine 20 unit 09/12/24 09:00 09/13/24 09:57 Insulin Glargine (Lantus) 5 Unit/0.05 Ml (Per 5 Units) SC 10/12/24 08:59 20 unit QDAY JUWAN Administration Insulin Human Lispro 0 unit 09/12/24 07:30 09/13/24 11:43 Insulin Lispro (Admelog) 1 Unit/0.01 Ml Unit SC 10/12/24 07:29 2 unit ACHS JUWAN Administration Protocol Magnesium Oxide 400 mg 09/12/24 10:45 09/13/24 09:57 Magnesium Oxide 400 Mg Tablet PO 10/12/24 10:44 400 mg QDAY JUWAN Administration Metoprolol Succinate 50 mg 09/12/24 09:00 09/12/24 10:26 Metoprolol Succinate Xl 25 Mg Tabcr PO 10/12/24 08:59 Not Given QDAY JUWAN Warfarin Sodium 5 mg 09/12/24 12:00 Warfarin 1 Mg Tablet PO 09/26/24 11:59 QDAY@1200 JUWAN Plan Patient is a 59-year-old male with past medical history significant for nonischemic cardiomyopathy, 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 Cardiology was consulted for evaluation of high INR, possible CHF exacerbation, and shortness of breath. 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 EKG showed left bundle branch block, first-degree AV block, but no ST changes. BNP elevated at 1548. Patient continues to have bibasilar crackles on exam however no JVD or lower extremity edema noted. Chest x-ray shows mild vascular congestion. Echocardiogram showed 50% ejection fraction with severe global hypokinesis, severe systolic dysfunction, dilated left ventricle. Aortic velocity increased from 2.5m/sec to 3.8m/sec. LDL 71. TSH 6.21. A1c currently 6.4. Troponins down trended. Net negative 1.9L. -Will transition patient from IV Bumex QD to Bumex 2mg PO QD -Continue atorvastatin 80 mg daily -Restart home GDMT as blood pressure tolerates -Consider elective TAVR after INR normalizes, s/p right and left heart cath -If patient is asymptomatic tomorrow, will schedule outpatient right and left heart cath #Elevated prothrombin time due to anticoagulation Patient received a total of 12 mg of vitamin K. Patient's INR today is 4.3. -Hold off on Vitamin K today -Continue to monitor any signs and symptoms for bleeding #History of A-fib, rate controlled EKG showed paced rate of 61, prolonged QT, left bundle branch block with first- degree AV block. -Continue to keep potassium above 4, magnesium above 2 -Restart patient's home metoprolol 50 mg XL as blood pressure tolerates -Continue home amiodarone 200 mg twice daily -Continue to hold warfarin at this time due to supratherapeutic INR Rest of problems as per primary team #Prerenal CHIKA #CKD stage IIIb #Insulin-dependent T2DM #Right foot ulcer Patient's plan and care discussed with my attending, Dr. Tariq. Deisi Marinelli MD PGY-2
[2024-09-13] MEDS: ATORVASTATIN CALCIUM 20 MG TABLET 80 MG PO (20:22)
[2024-09-14] VITALS (10 sets, daily range): BP systolic 91–98; BP diastolic 64–77; PULSE 60–79; RESP 16–20; TEMP 35.9–36.7; O2SAT 93–100
[2024-09-14 06:14] LABS: Basophils # (Auto) 0.1 Thou/mm3 (0.0-0.2); Basophils % (Auto) 1 % (0-2.5); Eosinophils # (Auto) 0.2 Thou/mm3 (0.0-0.5); Eosinophils % (Auto) 3 % (0-10); Hematocrit 36.2 % (41.0-53.0); Hemoglobin 12.4 g/dL (13.5-16.0); Immature Granulocytes % (Auto) 0 % (0-0); Immature Granulocytes Auto 0.02 Thou/mm3 (0.00-0.00); Lymphocytes # (Auto) 1.4 Thou/mm3 (1.0-4.8); Lymphocytes % (Auto) 20 % (10-50); Mean Corpuscular HGB Conc 34.3 g/dl (31.0-37.0); Mean Corpuscular Hemoglobin 33.3 pg (25.0-35.0); Mean Corpuscular Volume 97 fL (80-100); Monocytes # (Auto) 0.6 Thou/mm3 (0.0-0.8); Monocytes % (Auto) 9 % (0-12); Neutrophils # (Auto) 4.6 Thou/mm3 (1.8-7.7); Neutrophils % (Auto) 67 % (37-80); Nucleated Red Blood Cell % 0 /100 WBC (0); Platelet Count 183 Thou/mm3 (140-440); RDW Standard Deviation 50.1 fL (35.1-43.9); Red Blood Count 3.72 Miln/mm3 (4.50-5.90); White Blood Count 6.9 Thou/mm3 (3.8-10.6)
[2024-09-14 06:39] LABS: Alanine Aminotransferase 39 U/L (10-49); Albumin, Serum 4.6 gm/dL (3.5-5.0); Albumin/Globulin Ratio 1.8 (1.2-2.2); Alkaline Phosphatase 45 U/L (46-116); Anion Gap 11 (7-16); Aspartate Amino Transferase 32 U/L (0-34); BUN/Creatinine Ratio 19 Ratio (12-20); Bilirubin,Total 0.9 mg/dL (0.3-1.2); Blood Urea Nitrogen 40 mg/dL (9-23); Carbon Dioxide 29.9 mMol/L (20.0-31.0); Chloride 95 mMol/L (98-107); Creatinine (Component) 2.1 mg/dL (0.6-1.3); Estimated Creatinine Clearance 41.9 mL/min (>60); Globulin 2.6 gm/dL (2.3-3.5); Glucose 154 mg/dL (74-106); Osmolality,Calculated 284 (275-295); Phosphorous 4.6 mg/dL (2.4-5.1); Potassium 3.8 mMol/L (3.4-5.1); Sodium 136 mMol/L (136-145); Total Protein 7.2 gm/dL (5.7-8.2); eGFR 36 See Note
[2024-09-14 06:40] LABS: INR 2.3 (0.9-1.3); Prothrombin Time 23.8 Seconds (9.0-12.2)
[2024-09-14] MEDS: INSULIN GLARGINE (Lantus) 5 UNIT/0.05 ML (PER 5 UNITS) 24 UNIT SC (08:39)
[2024-09-14] MEDS: INSULIN LISPRO (AdmeLOG) 1 UNIT/0.01 ML UNIT SC ×3 (08:39→17:21)
[2024-09-14] MEDS: LACTULOSE SYRUP 20 GM/30 ML UDC PO (08:41)
[2024-09-14] MEDS: AMIODARONE HCL 200 MG TABLET PO (08:41)
[2024-09-14] MEDS: MAGNESIUM OXIDE 400 MG TABLET PO (08:42)
[2024-09-14] MEDS: POTASSIUM CHL 10 mEq IVPB 10 MEQ/100 ML BAG 100 MEQ IV (08:42)
[2024-09-14] MEDS: BUMETANIDE 0.5 MG TABLET 2 MG PO (08:42)
--- NOTE | 2024-09-14 10:31 | ESPR_ITS ---
<Statement entered by Ann Tariq MD - 09/14/24 14:47> I personally evaluated the patient have known him for several years has a history of nonischemic cardiomyopathy chronic systolic heart failure now has severe aortic stenosis as well patient had had cardiac thrombus in the past LV thrombus many years ago with Coumadin thrombus is completely resolved INR was quite high we stopped it now INR is 2.3. Patient had some atypical chest pain echo showed significant and severe aortic stenosis possibly causing chest pain. Patient will require right and left heart catheterization coronary angiogram in preparation for possible transcutaneous aortic valve replacement. Patient is stable to be discharged home on current medications except warfarin should be discontinued continue his diuretics as well as Entresto and diabetic medication we will see him for follow-up in next week and schedule him for right and left heart catheterization coronary angiography as an outpatient. I agree with the treatment plan recommendation as documented with PGY 2 dr Marinelli Documentation for date of: 09/14/24 Subjective Subjective Interval history: Patient seen and examined at bedside. Patient denies any chest pain, shortness of breath or palpitations. Labs showed significant improvement in INR, today is currently at 2.3. At this time, patient is recommended to stop taking warfarin as anticoagulation. Patient is advised to follow-up with cardiology on Monday hospital follow-up, and to schedule outpatient cath depending on patient's renal function next week. Patient also advised to continue with his home meds except to stop his warfarin. Based on cardiology standpoint, patient is safe to be discharged, and to f/u with with cardiology outpatient. Exam Vital Signs Temp Pulse Resp BP Pulse Ox O2 Del Method O2 Flow Rate 96.7 F L 60 16 94/64 97 Room Air 0.5 09/14/24 08:00 09/14/24 08:42 09/14/24 08:00 09/14/24 08:42 09/14/24 08:00 09/14/24 08:00 09/13/24 10:12 Narrative Exam General Appearance: Pt in NAD laying in bed. Able to answer questions, pleasant, and well-nourished. HEENT: NC/AT, no scleral icterus, no conjunctival pallor, MMM Lungs: Mild bibasilar crackles but no wheezing appreciated. No sensory muscle use noted. CVS: RRR, S1/S2 heard, no murmurs or rubs appreciated ABD: Soft, non-tender, non-distended, BS + in all 4 quadrants EXT: no deformity/edema/lesions/cyanosis/clubbing, radial pulses 2+ BL, DP pulses 2 + BL SKIN: Skin exam normal without any rashes. Neuro: A&O x 3. No gross neurological deficits. Motor and sensory grossly intact in B/L UL and LL. Psych: Appropriate mood and affect Objective Labs 09/14/24 05:26 09/14/24 05:26 Labs: Laboratory Results - last 24 hr 09/13/24 09/14/24 07:39 05:26 WBC 6.9 RBC 3.72 L Hgb 12.4 L Hct 36.2 L MCV 97 MCH 33.3 MCHC 34.3 RDW Std Deviation 50.1 H Plt Count 183 Neut % (Auto) 67 Lymph % (Auto) 20 [place] % (Auto) 9 Eos % (Auto) 3 Baso % (Auto) 1 Neut # (Auto) 4.6 Lymph # (Auto) 1.4 [place] # (Auto) 0.6 Eos # (Auto) 0.2 Baso # (Auto) 0.1 Immature Gran # (Auto) 0.02 H Absolute Nucleated RBC 0.00 Immature Gran % 0 Nucleated RBC % 0 PT 42.7 H* D 23.8 H D INR 2.3 H Sodium 136 Potassium 3.8 Chloride 95 L Carbon Dioxide 29.9 Anion Gap 11 BUN 40 H Creatinine 2.1 H Estim Creat Clear Calc 41.9 L eGFR 36 L BUN/Creatinine Ratio 19 Glucose 154 H Calculated Osmolality 284 Calcium 10.0 Corrected Calcium 10.0 Phosphorus 4.6 Magnesium 2.0 Total Bilirubin 0.9 AST 32 ALT 39 Alkaline Phosphatase 45 L Total Protein 7.2 Albumin 4.6 Globulin 2.6 Albumin/Globulin Ratio 1.8 Quality Measures Quality Measures VTE prophylaxis Assessment & Plan Assessment Current Active Medications: Generic Name Dose Route Start Last Admin Trade Name Freq PRN Reason Stop Dose Admin Acetaminophen 650 mg 09/12/24 05:50 Acetaminophen 325 Mg Tablet PO 10/12/24 05:49 Q6H PRN Fever >100.4 or Pain Amiodarone HCl 200 mg 09/12/24 09:00 09/14/24 08:41 Amiodarone Hcl 200 Mg Tablet PO 10/12/24 08:59 200 mg BID JUWAN Administration Atorvastatin Calcium 80 mg 09/12/24 17:30 09/13/24 20:22 Atorvastatin Calcium 20 Mg Tablet PO 10/12/24 17:29 80 mg HS JUWAN Administration Bumetanide 2 mg 09/14/24 09:00 09/14/24 08:42 Bumetanide 0.5 Mg Tablet PO 10/14/24 08:59 2 mg QDAY JUWAN Administration Dextrose 25 ml 09/12/24 05:59 Dextrose 50%-Water Inj 50 Ml Syringe IV 10/12/24 05:58 Q15MIN PRN BG 50-70 responsive npo pt Dextrose 50 ml 09/12/24 05:59 Dextrose 50%-Water Inj 50 Ml Syringe IV 10/12/24 05:58 Q15MIN PRN BG <50 OR BG <70 & pt unresponsive Glucagon 1 mg 09/12/24 05:59 Glucagon Inj 1 Mg Vial IM Q15MIN PRN BG <70, and no IV access Insulin Glargine 24 unit 09/14/24 09:00 09/14/24 08:39 Insulin Glargine (Lantus) 5 Unit/0.05 Ml (Per 5 Units) SC 10/14/24 08:59 24 unit QDAY [facility] Administration Insulin Human Lispro 0 unit 09/12/24 07:30 09/14/24 08:39 Insulin Lispro (Admelog) 1 Unit/0.01 Ml Unit SC 10/12/24 07:29 2 unit ACHS [facility] Administration Protocol Insulin Human Lispro 6 unit 09/14/24 12:00 Insulin Lispro (Admelog) 1 Unit/0.01 Ml Unit SC 10/14/24 11:59 TIDWM JUWAN Magnesium Oxide 400 mg 09/12/24 10:45 09/14/24 08:42 Magnesium Oxide 400 Mg Tablet PO 10/12/24 10:44 400 mg QDAY JUWAN Administration Metoprolol Succinate 50 mg 09/12/24 09:00 09/12/24 10:26 Metoprolol Succinate Xl 25 Mg Tabcr PO 10/12/24 08:59 Not Given QDAY JUWAN Sennosides 1 tab 09/14/24 07:58 Senna Tablet PO 10/14/24 07:57 QDAY PRN CONSTIPATION Protocol Warfarin Sodium 5 mg 09/12/24 12:00 Warfarin 1 Mg Tablet PO 09/26/24 11:59 QDAY@1200 [facility] Plan Patient is a 59-year-old male with past medical history significant for nonischemic cardiomyopathy, 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 Cardiology was consulted for evaluation of high INR, possible CHF exacerbation, and shortness of breath. Based on cardiology standpoint, patient is safe to be discharged, and to f/u with with Dr. Tariq outpatient for cath. Patient to continue taking his home medications except for anticoagulation, which will held for now and at discharge. 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 EKG showed left bundle branch block, first-degree AV block, but no ST changes. BNP elevated at 1548. Patient continues to have bibasilar crackles on exam however no JVD or lower extremity edema noted. Chest x-ray shows mild vascular congestion. Echocardiogram showed 50% ejection fraction with severe global hypokinesis, severe systolic dysfunction, dilated left ventricle. Aortic velocity increased from 2.5m/sec to 3.8m/sec. LDL 71. TSH 6.21. A1c currently 6.4. Troponins down trended. Net negative 1.9L. -Continue with all home medications including GDMT medications as BP tolerates -At this time, cardiology recommends to f/u outpatient to schedule cath and later possible TAVR depending on findings -Patient is to f/u with cardiology on 09/15/23 #Elevated prothrombin time due to anticoagulation Patient received a total of 12 mg of vitamin K. Patient's INR today is 2.3. -Stop warfarin anticoagulation for now and at discharge -Continue to monitor any signs and symptoms for bleeding #History of A-fib, rate controlled EKG showed paced rate of 61, prolonged QT, left bundle branch block with first- degree AV block. -Continue to keep potassium above 4, magnesium above 2 -Restart patient's home metoprolol 50 mg XL as blood pressure tolerates -Continue home amiodarone 200 mg twice daily -Hold warfarin now and at discharge despite INR level Rest of problems as per primary team #Prerenal CHKIA #CKD stage IIIb #Insulin-dependent T2DM #Right foot ulcer Patient's plan and care discussed with my attending, Dr. Tariq. Deisi Marinelli MD PGY-2
[2024-09-14] MEDS: INSULIN LISPRO (AdmeLOG) 1 UNIT/0.01 ML UNIT 6 UNIT SC ×2 (12:15→17:20)
--- NOTE | 2024-09-14 15:12 | PD.RESDS ---
Planned Discharge Date 09/14/24 DS: Providers Provider Date of admission: 09/12/24 14:12 Primary care physician: Gabriella Soni MD Admitting Provider: Juno Nguyen MD Attending Provider on Admission: Juno Nguyen MD Consults: 09/12/24 05:55 Consult to Cardiology Stat Comment: Chest pain, pt of Dr. Tariq for CHF Consulting Provider: Ann Tariq 09/12/24 05:56 Referral Wound Care Stat Comment: Pt sees Wound Clinic for bilat foot blisters 09/12/24 13:40 Referral Nutritional Services Routine Comment: Instructions: Small DM ulcer right foot 09/12/24 17:32 Referral Physical Therapy Routine Comment: Physician Instructions: Attending Provider on DC: Martin Dockery MD Discharging Provider: Martin Dockery MD DS: Diagnosis Problem List Completed Was Problem List Reviewed/Reconciled?: Yes Hospital Course Hospital Course Hospital course: Patient is a 59-year-old male with past medical history of HFrEF s/p AICD/pacemaker, type 2 diabetes on insulin, afib on warfarin, insulin-dependent type 2 diabetes mellitus, and hyperlipidemia who presented to the ED on 09/12/2024 with pressure-like left-sided substernal chest pain starting around 1:30 am the previous night, at its worst rated 8/10. Patient reports that he took an aspirin which improved the pain. When EMS arrived, he was given another aspirin and nitroglycerin, which patient states also relieved the pain to a 3/10. Patient stated that this was the first time feeling a pain like this. In the ED Labs significant for Hgb 12.3, Hct 35.8, BUN 40, creatinine 2.4, GFR 30, troponin 0.041->0.048, BNP 1548, UA and Utox negative, CXR showed mild vascular congestion as evidenced by enlarged cardiac silhouette and perihilar infiltrate. ECHO EF 15%, severe global hypokinesis, severe systolic dysfunction, dilated left ventricle. Patient not currently following up with cardiology. TSH 6.21, T4 free 1.60, A1c 6.4, TG 117, LDL 71, cholesterol 126, HLD 32. The patient was started on Bumex 1 mg IV twice daily, and slowly resumed GDMT. The patient's warfarin was stopped as it was started previously because he had left ventricular thrombus that has resolved, and has no atrial fibrillation. Cardiology consultation was done with Dr. Tariq, who recommended stopping warfarin and continuing all other home medicines. The patient was discharged home to be followed up with Dr. Tariq on 09/16/2024 on Monday, with possible cardiac catheterization within a week. Atypical chest pain Concern for ACS History of HFrEF s/p AICD History of dilated cardiomyopathy Mild troponinemia, likely type II (resolved) Hyperlipidemia Prerenal CHIKA, Resolved CKD stage IIIb Supratherapeutic INR, Resolved Insulin-dependent T2DM Right foot ulcer Discharge plan: Please follow-up with her PCP within 1 week of discharge. Please follow-up with Dr. Tariq on Monday09/16/2024 We have discontinued your warfarin 5 mg daily Continue taking all other medicines as prescribed -Recommended to return back to emergency department if your symptoms persist or does not improve. -Wound to right side/bottom of foot: May shower than swab with betadine daily allowing black scabbed area to dry. Wipe off any betadine to surrounding tissue. Please continue to wear offloading boot with foam while walking. Follow up with Podiatry. Please call to make appointment within 1-2 weeks of your discharge The patient's management plan was discussed with my attending physician Dr. Pean, DO Martin Dockery MD, PGY2 Time Spent with Patient Time attestation: Total time spent providing and/or coordinating discharge services: >35 min Exam Vital Signs Temp Pulse Resp BP Pulse Ox O2 Del Method O2 Flow Rate 96.7 F L 65 19 91/73 96 Room Air 0.5 09/14/24 12:09/14/24 12:09/14/24 12:09/14/24 12:09/14/24 12:09/14/24 12:09/13/24 10:12 Narrative Exam General: No acute distress, Alert and Oriented x 3 HEENT: Moist mucous membranes, oropharynx clear Neck: Supple, No masses, No JVD CVS: S1S2 Regular rate and rhythm, Mid systolic crescendo-decrescendo murmur, best heard at right second intercostal space Lungs: Clear to auscultation with no accessory use, no wheeze no rhonchi Abd: Soft, NT/ND, +BS, no organomegaly Ext: No edema, warm and well perfused Skin: No rash Psych: Appropriate mood and affect Discharge Plan Plan Patient Disposition: HOME (Self Care) Care Plan Goals: Please follow-up with her PCP within 1 week of discharge. Please follow-up with Dr. Tariq on Monday09/16/2024 We have discontinued your warfarin 5 mg daily Continue taking all other medicines as prescribed -Recommended to return back to emergency department if your symptoms persist or does not improve. -Wound to right side/bottom of foot: May shower than swab with betadine daily allowing black scabbed area to dry. Wipe off any betadine to surrounding tissue. Please continue to wear offloading boot with foam while walking. Follow up with Podiatry. Please call to make appointment within 1-2 weeks of your discharge Prescriptions/Referrals Prescriptions/Med Rec: Continued metformin 500 mg Tablet 1,000 mg PO BID glipizide 5 mg Tablet 5 mg PO BID Rx Instructions: 30 min. before meals twice a day Humalog Mix 50-50 KwikPen 100 unit/mL (50-50) Insulin Pen 15 unit SUBCUT QDAY PRN (Reason: sugar >250) Rx Instructions: FOR BLOOD SUGAR OVER 250 atorvastatin 10 mg Tablet 10 mg PO QDAY 30 Days Qty: 30 0RF bumetanide 2 mg Tablet 2 mg PO QDAY metoprolol succinate 50 mg Tablet Extended Release 24 Hr 50 mg PO QDAY spironolactone 25 mg Tablet 25 mg PO 1XD sacubitril-valsartan [Entresto] 24-26 mg Tablet 1 tab PO BID albuterol sulfate [ProAir HFA] 90 mcg/actuation Hfa Aerosol Inhaler 2 puff INHALATION Q4H PRN (Reason: Shortness Of Breath) insulin glargine [Lantus Solostar U-100 Insulin] 100 unit/mL (3 mL) Insulin Pen 20 unit SUBCUT HS glyburide 2.5 mg Tablet 2.5 mg PO QDAY Onglyza 5 mg Tablet 5 mg PO QDAY Discontinued insulin glargine [Lantus Solostar U-100 Insulin] 100 unit/mL (3 mL) Insulin Pen 20 unit SUBCUT QPM warfarin 5 mg Tablet 5 mg PO QDAY furosemide [Lasix] 40 mg Tablet 40 mg PO QAM Referrals: Gabriella Soni MD [Primary Care Provider] - Patient/Caregiver Discharge Instructions Other Discharge Activity Instructions:: Please follow-up with her PCP within 1 week of discharge. Please follow-up with Dr. Tariq on Monday09/16/2024 We have discontinued your warfarin 5 mg daily Continue taking all other medicines as prescribed -Recommended to return back to emergency department if your symptoms persist or does not improve. -Wound to right side/bottom of foot: May shower than swab with betadine daily allowing black scabbed area to dry. Wipe off any betadine to surrounding tissue. Please continue to wear offloading boot with foam while walking. Follow up with Podiatry. Please call to make appointment within 1-2 weeks of your discharge Education Materials: CGM, Diabetes: Keeping Feet Healthy, Diabetes: Inspecting Your Feet, ED Diet: Diabetes Print Language: Upper Sorbian Stand Alone Forms: Antonia Award Info., Patient Portal Info Letter Quality Discharge Quality Measures VTE prophylaxis MD Attestestation MD Attestation I have discussed and was present for the essential components of the discharge history, physical examination, diagnosis, and discharge treatment plan with the resident. I agree with the patient's discharge care as documented by the resident and amended herein by me. Олег Pena DO. The patient understood all discharge instructions, all questions were answered satisfactorily. The patient was instructed to return to the Emergency Department is symptoms worsened or persisted. Patient was stable, afebrile, tolerating p.o. intake and ambulatory at time of discharge. Patient will have right heart cath on an outpatient basis per cardiology, possibly Saturday 09/16. All questions were answered. Although this document has been carefully reviewed, there may still be some phonetic and other typographical errors. These errors are purely grammatical due to imperfections in the software program and should not be construed in any way to compromise the substance of the patient's medical care during this visit.
--- NOTE | 2024-09-14 19:37 | PC.NURSE ---
Went over wound care with patient and family, gave betadine swabs with family to perform wound care. Stated have boot at home and follow up with podiatry and wound care.
--- NOTE | 2024-09-15 07:17 | PC.CC ---
Late Entry 09/14/24: Rounding note: Pt to D/c home pending cardiac clearance.
== END 2024-09-14 18:12 | disposition home or self-care (01) | DRG 291 ==
LOC: SERX 22:00 → SERHOLD 09-12 06:38 → S2SX 09-12 13:39 → SERHOLD 09-12 14:15 → S2SX 09-12 14:34 → S2NX 09-12 15:52
PROVIDERS: Registered Nurse General Practice; Student in an Organized Health Care Education/Training Program; Admitting Provider Internal Medicine; Emergency Provider Emergency Medicine; PCP Family Medicine; Visit Provider Internal Medicine
DX: I13.0 Hypertensive heart and chronic kidney disease with heart failure and stage 1 through stage 4 chronic kidney disease, or unspecified chronic kidney disease (principal); I50.23 Acute on chronic systolic (congestive) heart failure; N17.9 Acute kidney failure, unspecified; I42.0 Dilated cardiomyopathy; E78.5 Hyperlipidemia, unspecified; I44.0 Atrioventricular block, first degree; I44.7 Left bundle-branch block, unspecified; E11.22 Type 2 diabetes mellitus with diabetic chronic kidney disease; E11.621 Type 2 diabetes mellitus with foot ulcer; N18.32 Chronic kidney disease, stage 3b; E66.9 Obesity, unspecified; L97.519 Non-pressure chronic ulcer of other part of right foot with unspecified severity; I95.9 Hypotension, unspecified; Z68.30 Body mass index [BMI] 30.0-30.9, adult; I08.3 Combined rheumatic disorders of mitral, aortic and tricuspid valves; Z86.79 Personal history of other diseases of the circulatory system; Z87.891 Personal history of nicotine dependence; Z95.810 Presence of automatic (implantable) cardiac defibrillator; Z79.4 Long term (current) use of insulin; Z79.01 Long term (current) use of anticoagulants; Z79.84 Long term (current) use of oral hypoglycemic drugs; Z79.899 Other long term (current) drug therapy
CPT/HCPCS: 36415; 71045; 73620; 80048; 80053; 80061; 80307; 81001; 83036; 83615; 83735; 83880; 84100; 84439; 84443; 84484; 85025; 85610; 85730; 86850; 86900; 86901; 93005; 93306; 96360; 97161; 99285; J1815; J3430; J3480; J3490; J7040; A9270

== ENCOUNTER 2024-09-30 07:03 | Day surgery (SDC) | payer OTHER, MEDICAID, SELFPAY ==
[2024-09-25 14:50] VITALS: BMI 31.6
--- NOTE | 2024-09-27 07:00 | EKG_ITS ---
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
[2024-09-27 13:25] LABS: Basophils % (Auto) 1 % (0-2.5); Eosinophils # (Auto) 0.1 Thou/mm3 (0.0-0.5); Eosinophils % (Auto) 2 % (0-10); Hematocrit 34.5 % (41.0-53.0); Hemoglobin 11.5 g/dL (13.5-16.0); Immature Granulocytes % (Auto) 1 % (0-0); Immature Granulocytes Auto 0.04 Thou/mm3 (0.00-0.00); Lymphocytes # (Auto) 1.2 Thou/mm3 (1.0-4.8); Lymphocytes % (Auto) 16 % (10-50); Mean Corpuscular HGB Conc 33.3 g/dl (31.0-37.0); Mean Corpuscular Hemoglobin 33.3 pg (25.0-35.0); Mean Corpuscular Volume 100 fL (80-100); Monocytes # (Auto) 0.4 Thou/mm3 (0.0-0.8); Monocytes % (Auto) 6 % (0-12); Neutrophils # (Auto) 5.5 Thou/mm3 (1.8-7.7); Neutrophils % (Auto) 75 % (37-80); Nucleated Red Blood Cell % 0 /100 WBC (0); Platelet Count 170 Thou/mm3 (140-440); RDW Standard Deviation 53.9 fL (35.1-43.9); Red Blood Count 3.45 Miln/mm3 (4.50-5.90); White Blood Count 7.3 Thou/mm3 (3.8-10.6)
[2024-09-27 13:33] LABS: INR 1.1 (0.9-1.3); Partial Thromboplastin Time 20.5 Seconds (22.0-36.0); Prothrombin Time 11.8 Seconds (9.0-12.2)
[2024-09-27 13:41] LABS: Anion Gap 11 (7-16); BUN/Creatinine Ratio 18 Ratio (12-20); Blood Urea Nitrogen 35 mg/dL (9-23); Calcium 9.8 mg/dL (8.3-10.6); Carbon Dioxide 25.6 mMol/L (20.0-31.0); Chloride 102 mMol/L (98-107); Estimated Creatinine Clearance 44.3 mL/min (>60); Glucose 188 mg/dL (74-106); Osmolality,Calculated 290 (275-295); Potassium 4.5 mMol/L (3.4-5.1); Sodium 139 mMol/L (136-145); eGFR 38 See Note
[2024-09-30] VITALS (16 sets, daily range): BP systolic 84–105; BP diastolic 62–75; PULSE 60–70; RESP 11–25; TEMP 36.2–36.9; O2SAT 94–100; BMI 31.9
[2024-09-30] MEDS: DEXTROSE 5%-0.45% NS 500 ML 50 ML IV (07:28)
--- NOTE | 2024-09-30 12:03 | PC.NURSE ---
1200 patient is awake, alert, breathing unlabored, s/p LHC and RHC, dressing to right groin and right wrist dry with no bleeding or hematoma, TR band has been removed, report received from Destini AMADOR, monique to discharge patient home after 1250.
--- NOTE | 2024-09-30 12:50 | PC.NURSE ---
1245 report given to Destini AMADOR
--- NOTE | 2024-10-01 17:57 | ESOP_ITS ---
RE: ARCHIE WILDER : 1965 DATE OF OPERATION: 09/30/2024 PROCEDURES PERFORMED: 1. Right and left heart cardiac catheterization, selective coronary angiogram, left ventricular angiogram, CPT 06080. 2. Intracoronary ultrasound examination, IVUS examination of left anterior descending artery, CPT 65959. 3. Conscious sedation for 30-minute duration. 4. Ultrasound-guided access, right radial artery and femoral vein. DIAGNOSES: Ischemic cardiomyopathy, congestive heart failure, severe aortic stenosis. HISTORY AND INDICATIONS: The patient is a 59-year-old male with a past medical history of nonischemic cardiomyopathy, hypertension, diabetes, hypercholesterolemia with progressive heart failure symptoms. He has had DECORATOR INSPECTOR defibrillator implantation as well in the past, but recently hospitalized with episode of severe substernal chest pain, mild troponin elevation, and continued to have recurrent chest tightness, shortness of breath, also severe aortic stenosis by cardiac echo in the hospital showed nearly _ despite having low ejection fraction. Hence, the patient was recommended to have right and left heart cardiac catheterization, coronary angiogram, and possible assessment for transcutaneous aortic valve replacement and also possible assessment of underlying coronary artery disease prior to proceeding with the TAVR procedure. DESCRIPTION OF PROCEDURE: The patient was brought to cardiac catheterization laboratory where he was given 2 mg of Versed and 50 mcg of fentanyl for sedation. Right femoral vein was cannulated with micropuncture technique and 6-[place]ian glide sheath was introduced. Ultrasound guidance was used. Right radial artery cannulated by micropuncture technique and a 6-[place] Glidesheath was introduced. Right heart catheterization was performed with [place]-Christiano catheter. Cardiac output was measured. Right heart pressures were measured. Left heart catheter was performed by AL1 diagnostic catheter 5 [place] across aortic valve. Left ventricular angiogram was performed by hand injection. Subsequently, selective right coronary angiogram was performed by FR4 diagnostic catheter. Selective left coronary angiogram performed by TIG-4 diagnostic catheter. The patient tolerated the procedure well. No complications. Following diagnostic procedure, there was evidence of moderate 80% stenosis of the left anterior descending artery, not sure on intervention. Proceeded with intracoronary ultrasound examination of the left main and left anterior descending arteries prior to proceeding with the TAVR procedure. The patient was given radial cocktail of 3000 units. Additional 3000 units plus another 1,000, total of 7000 units heparin given. ACT was therapeutic. Proceeded with intracoronary ultrasound examination of the left anterior descending artery. A 6-[place]ian JL 3.5 guiding catheter was used to cannulate the left main coronary artery. A 0.014 Runthrough guide wire was used to cross the lesion successfully. [employer] 6-[place]ian [facility] [facility] imaging catheter advanced and placed in the left anterior descending artery. Intracoronary ultrasound examination of the left anterior descending artery performed. Cardiac catheterization report showed following findings: Hemodynamics: Right atrial pressure is 10 mmHg, right ventricular pressure is 54/11 mmHg, pulmonary pressure 56/24 mmHg and mean 36 mmHg, moderate to severe pulmonary hypertension, pulmonary artery wedge pressure, mean wedge pressure is 30, V-wave 43, A-wave 29. Left ventricular pressure 119/9, EDP is 23 mmHg. Aortic pressure is 82/58 mmHg. There is a peak gradient of 40 mmHg, mean gradient of 25 mmHg across the aortic valve. Aortic valve area 0.7 square cm. The cardiac output is measured with 3.5 L/min, cardiac index 1.68. Coronary angiogram showed following findings: Right coronary artery is large and dominant, showed mild irregularities. PDA and PL branches are normal. Left coronary system. Left main coronary artery is normal. Left anterior descending artery showed heavily calcified lesion involving proximal left anterior descending approximately 80% stenosis angiographically. Distal LAD is 4 mm vessel and mid and distal segments are large vessels. Circumflex artery is nondominant, appear normal. Left ventricular angiogram showed severe global hypokinesis, ejection fraction of 15% to 20%. Intracoronary ultrasound exam showed that the left anterior descending artery is a 4 mm vessel and its minimal luminal area is only 2.3 mm, which is considered critical in the proximal left anterior descending artery. There is a concentric endocalcification in the proximal left anterior descending artery. The lesion length is about 30 mm complex lesion, but there is luminal area. stenosis appears to be close to 80% to 90% stenosis and area of stenosis 80%. SUMMARY OF FINDINGS AND SUGGESTIONS: 1. Severe calcific aortic stenosis, aortic valve area at 0.7 cm, low flow, low- gradient stenosis. 2. Ischemic and nonischemic cardiomyopathy, severe LV dysfunction, ejection fraction 15% to 20%. 3. Moderate pulmonary hypertension with elevated wedge pressures. 4. Single vessel coronary artery with evidence of severe 80% to 90% stenosis of the proximal left anterior descending artery confirmed by intracoronary ultrasound examination showing area of 2.3 mm. RECOMMENDATIONS: The patient is high-risk for sugery, PCI stent placed in the left anterior descending artery and subsequently transcutaneous aortic valve replacement. We will get a cardiothoracic surgery consultation as well and proceed with a PCI of the left anterior descending artery at [facility] because of high-risk nature of the procedure with Impella standby and possible balloon valvuloplasty if necessary. DT: 16:18:11 TT: 17:47:00 Ref: [id number] - TID: [id number] MTDD
== END 2024-09-30 13:10 | disposition home or self-care (01) ==
PROVIDERS: PCP Nurse Practitioner Family; Referring Provider Internal Medicine Cardiovascular Disease; Visit Provider Internal Medicine Cardiovascular Disease
PROC: (CPT 93460; principal; 2024-09-30 07:30)
DX: I35.0 Nonrheumatic aortic (valve) stenosis (principal); I50.9 Heart failure, unspecified; I42.8 Other cardiomyopathies; I25.5 Ischemic cardiomyopathy; I11.0 Hypertensive heart disease with heart failure; E78.00 Pure hypercholesterolemia, unspecified; E11.9 Type 2 diabetes mellitus without complications; Z01.810 Encounter for preprocedural cardiovascular examination; I27.20 Pulmonary hypertension, unspecified; I25.10 Atherosclerotic heart disease of native coronary artery without angina pectoris; Z95.0 Presence of cardiac pacemaker
CPT/HCPCS: 93460; 92978; 36415; 80048; 85025; 85347; 85610; 85730; 93005; 99152; 99153; A4649; C1753; C1769; C1887; C1894; J0171; J0461; J1643; J2250; J2310; J2371; J3010; J3490; J7042; Q9967; A9270; J2305

== ENCOUNTER → 2024-10-08 | Outpatient (CLI) | payer OTHER, MEDICAID, SELFPAY ==
[2024-10-08 09:10] LABS: Basophils % (Auto) 1 % (0-2.5); Eosinophils # (Auto) 0.1 Thou/mm3 (0.0-0.5); Eosinophils % (Auto) 2 % (0-10); Hematocrit 34.1 % (41.0-53.0); Hemoglobin 11.4 g/dL (13.5-16.0); Immature Granulocytes % (Auto) 0 % (0-0); Immature Granulocytes Auto 0.01 Thou/mm3 (0.00-0.00); Lymphocytes # (Auto) 0.8 Thou/mm3 (1.0-4.8); Lymphocytes % (Auto) 14 % (10-50); Mean Corpuscular HGB Conc 33.4 g/dl (31.0-37.0); Mean Corpuscular Hemoglobin 32.9 pg (25.0-35.0); Mean Corpuscular Volume 99 fL (80-100); Monocytes # (Auto) 0.5 Thou/mm3 (0.0-0.8); Monocytes % (Auto) 8 % (0-12); Neutrophils # (Auto) 4.5 Thou/mm3 (1.8-7.7); Neutrophils % (Auto) 75 % (37-80); Nucleated Red Blood Cell % 0 /100 WBC (0); Platelet Count 174 Thou/mm3 (140-440); RDW Standard Deviation 52.9 fL (35.1-43.9); Red Blood Count 3.46 Miln/mm3 (4.50-5.90)
[2024-10-08 09:38] LABS: Alanine Aminotransferase 42 U/L (10-49); Albumin, Serum 4.5 gm/dL (3.5-5.0); Alkaline Phosphatase 57 U/L (46-116); Anion Gap 11 (7-16); Aspartate Amino Transferase 28 U/L (0-34); BUN/Creatinine Ratio 19 Ratio (12-20); Bilirubin,Direct 0.3 mg/dL (0.0-0.3); Bilirubin,Total 0.8 mg/dL (0.3-1.2); Blood Urea Nitrogen 54 mg/dL (9-23); Calcium 9.8 mg/dL (8.3-10.6); Carbon Dioxide 30.4 mMol/L (20.0-31.0); Chloride 96 mMol/L (98-107); Creatinine (Component) 2.8 mg/dL (0.6-1.3); Glucose 124 mg/dL (74-106); Osmolality,Calculated 289 (275-295); Phosphorous 4.3 mg/dL (2.4-5.1); Potassium 3.8 mMol/L (3.4-5.1); Sodium 137 mMol/L (136-145); Total Protein 6.8 gm/dL (5.7-8.2); eGFR 25 See Note
== END | disposition home or self-care (01) ==
LOC: COPL 08:36
PROVIDERS: PCP Nurse Practitioner Family; Referring Provider Internal Medicine Cardiovascular Disease; Visit Provider Internal Medicine Cardiovascular Disease
DX: I35.0 Nonrheumatic aortic (valve) stenosis (principal); I11.0 Hypertensive heart disease with heart failure; I50.22 Chronic systolic (congestive) heart failure
CPT/HCPCS: 36415; 80048; 80069; 80076; 84100; 85025

== ENCOUNTER 2025-01-18 21:12 | Emergency (ER) | payer OTHER, MEDICAID, SELFPAY ==
[2025-01-18 21:24] VITALS: BP 146/80; PULSE 70; RESP 18; TEMP 36.8; O2SAT 100; BMI 28.4
[2025-01-18 21:38] VITALS: PULSE 79; RESP 18; O2SAT 98
--- NOTE | 2025-01-18 23:07 | PD.EDSKIN ---
ED Skin Abcess FB-RME/HPI General Chief complaint: General Adult/Misc Complain Stated complaint: ITCHY LEGS/BACK Time Seen by Provider: 01/18/25 23:01 Arrival date/time: 01/18/25 21:12 RME / HPI RME / HPI narrative: This section includes all my notes and documentations, including HPI, PE, and ED course. Kermit Olivo MD HPI: 59 y/o male with Hx of Cardiac Arrhythmia, Atrial Fibrillation, Coronary Artery Disease, Hypercholesterolemia, Congestive Heart Failure, Cardiomyopathy, Hypertension, Cataracts, and Diabetes Mellitus Type 2 BIBA from halfway presents to ED c/o itching x 2.5 weeks. Primarily complains of itching to his left lower leg, scalp, back, and buttocks. He also complains of itching to the surgical area accessed for valve and pacemaker placement approximately 1 month ago. Patient was recently treated at [place] with topical cream that did not help. No other complaints. ROS: All negative except as documented in HPI. Physical Exam: General: Alert and oriented. No acute distress when remaining still. Eyes: Conjunctivae and lids clear. ENT: No nasal congestion. No signs of angioedema. Neck: Supple. Heart: RRR. Lungs: No respiratory distress. Good air movement. No rhonchi, wheezing, rales. Abdomen: Soft and nontender. Skin: Warm and dry. Many areas of scratching noted, varying in size and shape and age. Neuro: Alert and oriented X 3. I reviewed EMS and halfway notes. I reviewed all diagnostic test results. Blood tests and urine tests unremarkable except glucose 205. At this point, diagnoses include itching of unclear etiology. Treatment here included IV fluid, Methylprednisolone, Pepcid, Benadryl, Insulin. Significant improvement noted. Prescribed prednisone I recommended more outpatient care. Based on my best medical judgment, made decision no further evaluation or treatment indicated at this time. Patient understands and agrees to the discharge instructions customized and printed, see below. Discharge Instructions from Dr. Olivo printed for you: 1. After evaluation, exact cause of your many areas of itching was not determined. 2. But we need to help stop scratching. Which will damage her skin and make the itching worse. Take prednisone as prescribed, this will help the itching. And Benadryl, topical steroid cream, and cold compress as needed. 3. See a private doctor in a week if not completely better. Ask for a referral to see rag collector. 4. Seek immediate medical care with worsening or with any concerns. Kermit Olivo MD Related Data Home Medications ?Medication ?Instructions ?Recorded ?Confirmed glipizide 5 mg tablet 5 mg PO BID 08/28/19 09/30/24 metformin 500 mg tablet 1,000 mg PO BID 08/28/19 09/30/24 Held on 09/30/24. Instructions: Resume on 10/02/24. bumetanide 2 mg tablet 2 mg PO QDAY 03/28/22 09/30/24 metoprolol succinate 50 mg 50 mg PO QDAY 03/28/22 09/30/24 tablet,extended release 24 hr sacubitril 24 mg-valsartan 26 mg 1 tab PO BID 03/28/22 09/30/24 tablet (Entresto) spironolactone 25 mg tablet 25 mg PO 1XD 03/28/22 09/30/24 amiodarone 200 mg tablet 200 mg PO BID 09/14/24 09/30/24 metolazone 5 mg tablet 5 mg PRN PRN Fluid retention 09/14/24 09/30/24 pantoprazole 40 mg tablet,delayed 40 mg PO 1XD 09/14/24 09/30/24 release Previous Rx's ?Medication ?Instructions ?Recorded atorvastatin 10 mg tablet 10 mg PO QDAY 30 days #30 tabs 01/29/22 aspirin 81 mg tablet,delayed 81 mg PO QDAY #30 tabs 09/30/24 release clopidogrel 75 mg tablet (Plavix) 75 mg PO QDAY #30 tabs 09/30/24 prednisone 20 mg tablet 20 mg PO BID 5 days #10 tabs 01/19/25 Allergies Allergy/AdvReac Type Severity Reaction Status Date / Time Penicillins Allergy Unknown Verified 09/25/24 14:48 Review of Systems Review of Systems Systems Reviewed: All systems reviewed, normal except as documented Past Medical History Past Medical History CARDIAC: Positive Cardiac Disorders, Cardiac Arrhythmia, Atrial Fibrillation, Coronary Artery Disease, Hypercholesterolemia, Congestive Heart Failure, Cardiomyopathy, Edema, Cellulitis and Hypertension GENITOURINARY: Positive Genitourinary Disorders MUSCULOSKELETAL: Positive Musculoskeletal Disorders ENT: Positive Cataracts ENDOCRINE: Positive Endocrine Disorders and Diabetes Mellitus Type 2 OTHER HISTORY: Positive Hospitalization and Chicken Pox Family History FAMILY HISTORY: Positive Family Cardiac Disorders and Family Cancer Surgical History SURGICAL: Positive Cardiac Surgery, Cardiac Catheterization, Pacemaker, Angiogram and Auto Implanted Cardiovert Defib ED Exam Narrative Physical exam: Refer to HPI above Course Quality Measures none Orders Category Date Time Status Bedside COVID-19 Antigen Test NOW Care 01/18/25 23:12 Active Bedside Influenza A&B Antigen Test NOW Care 01/18/25 23:12 Active Saline [Insert IV] NOW Care 01/18/25 23:12 Active Straight [In and Out Catheter] X1 Care 01/18/25 23:12 Active Bilirubin,Direct Stat Lab 01/18/25 23:26 Completed CBC Stat Lab 01/18/25 23:26 Completed CMP [Comprehensive Metabolic Panel] Stat Lab 01/18/25 23:26 Completed CRP [C-Reactive Protein] Stat Lab 01/18/25 23:26 Completed ESR [Sed Rate (ESR)] Stat Lab 01/18/25 23:26 Completed Free T4 (Free Thyroxine) Stat Lab 01/18/25 23:26 Completed Magnesium Stat Lab 01/18/25 23:26 Completed Procalcitonin Stat Lab 01/18/25 23:26 Completed TSH [Thyroid Stimulating Hormone] Stat Lab 01/18/25 23:26 Completed UA, C/S IF [Urinalysis, C/S if Indicated] Stat Lab 01/18/25 23:00 Completed DiphenhydrAMINE INJ [Benadryl Inj] Med 01/18/25 23:12 Discontinued 50 mg IV X1 STA Famotidine Inj [Pepcid Inj] Med 01/18/25 23:12 Discontinued 20 mg IVP X1 ONE Insulin Regular Med 01/19/25 00:56 Discontinued 5 unit SC X1 ONE MethylPREDNISolone.* [SoluMEDROL Inj] Med 01/18/25 23:12 Discontinued 125 mg IM X1 ONE Sodium Chloride 0.9% 1000 ml [Ns] 1,000 ml Med 01/18/25 23:12 Discontinued IV 999 mls/hr Vital Signs Vital signs: Vital Signs Temperature 98.2 F 01/18/25 21:24 Pulse Rate 70 01/18/25 21:24 Respiratory Rate 18 01/18/25 21:24 Blood Pressure 146/80 H 01/18/25 21:24 Pulse Oximetry (%) 100 01/18/25 21:24 Oxygen Delivery Method Room Air 01/18/25 21:24 Skin / Abscess / Foreign Body MDM Narrative MDM Narrative:: Scribe Attestation: Ana Leon, am scribing for and in the presence of Dr. Olivo. Provider Notation: Although this document has been carefully reviewed, there may still be some phonetic and other typographical errors.? These errors are purely grammatical due to imperfections in the software program and should not be construed in any way to? compromise the substance of the patient's medical care during this visit. 59 y/o male with Hx of Cardiac Arrhythmia, Atrial Fibrillation, Coronary Artery Disease, Hypercholesterolemia, Congestive Heart Failure, Cardiomyopathy, Edema, Cellulitis, Hypertension, Cataracts, and Diabetes Mellitus Type 2 BIBA from halfway presents to ED c/o constant itching x 2.5 weeks. Patient data [facility] (Prior ED records reviewed from 09/11/24. Patient was seen for Chest pain.), EMS form and [facility] records Clinical information provided by:: patient and EMS Social determinants that could affect healthcare access:: housing (halfway) Patient has the following chronic illnesses:: Cardiac Arrhythmia, Atrial Fibrillation, Coronary Artery Disease, Hypercholesterolemia, Congestive Heart Failure, Cardiomyopathy, Edema, Cellulitis, Hypertension, Cataracts, Diabetes Mellitus Type 2 How is presenting disease/condition affected by chronic disease/condition?: exacerbated by Evaluation data The following diagnostics were reviewed and interpreted by me:: lab results Lab and/or radiology exams considered but not ordered:: None Interpretation Summary: I reviewed all diagnostic test results. Blood tests and urine tests unremarkable except glucose 205. Medications / Prescriptions Medications or Prescriptions considered but not ordered:: None Medication administrations:: Medication Administration History Discontinued Medications Diphenhydramine HCl (Diphenhydramine Inj 50 Mg/Ml Vial) 50 mg IV X1 STA Stop: 01/18/25 23:13 Last Admin: 01/18/25 23:49 Dose: 50 mg Documented By: CCT Famotidine (Famotidine Inj 10 Mg/Ml Vial 2 Ml) 20 mg IVP X1 ONE Stop: 01/18/25 23:13 Last Admin: 01/18/25 23:49 Dose: 20 mg Documented By: CCT Sodium Chloride (Ns) 1,000 mls @ 999 mls/hr IV .Q1H1M ONE Stop: 01/19/25 00:12 Last Infusion: 01/19/25 00:50 Dose: Infused Documented By: Admin: 01/18/25 23:46 Dose: 999 mls/hr Documented By: CCT Insulin Human Regular (Insulin Hum Regular 1 Unit/0.01 Ml (Per Unit)) 5 unit SC X1 ONE Stop: 01/19/25 00:57 Last Admin: 01/19/25 01:09 Dose: 5 unit Documented By: CCT Co-signed By: [facility] Methylprednisolone Sodium Succinate (Methylprednisolone Sod Succ 62.5 Mg/Ml 2ml Vial) 125 mg IM X1 ONE Stop: 01/18/25 23:13 Last Admin: 01/18/25 23:48 Dose: 125 mg Documented By: CCT IV fluid, Methylprednisolone, Pepcid, Benadryl, Insulin Consultations Consultation(s) initiated? (list below): No Diagnosis Skin/Abscess Differential Diagnosis: abscess of skin or subcutaneous tissue, viral exanthem, dermatophytosis, urticaria, allergic reaction to drug, cellulitis, eczema, insect bites, impetigo and contact dermatitis Most likely diagnosis given after review of the tests above:: itching of unclear etiology Admission Indicated Admission indicated?: not indicated Explain why admission is indicated or not indicated:: With significant improvement, there was no indication for admission. Admission Request Was there a request for admission?: No Disposition Plan Disposition Plan: Discharge Discharge Attestation Discharge Attestation: The patient and all family members were given an opportunity to ask questions and understood the discharge instructions. Discharge instructions specifically effects, indications for sooner follow up or return to the emergency department, and the expected course of current diagnosis. Patient condition: Stable Discharge Plan Plan Patient Disposition: Xfer Skilled Nsg Fac (SNF) Prescriptions/Referrals Prescriptions/Med Rec: New prednisone 20 mg tablet 20 mg PO BID 5 Days Qty: 10 0RF Taper: Prednisone Taper 20 mg DAILY for 2 Days and 0 Hour 10 mg DAILY for 2 Days and 0 Hour 5 mg DAILY for 7 Days and 0 Hour No Action metformin 500 mg Tablet 1,000 mg PO BID glipizide 5 mg Tablet 5 mg PO BID Rx Instructions: 30 min. before meals twice a day atorvastatin 10 mg Tablet 10 mg PO QDAY 30 Days Qty: 30 0RF bumetanide 2 mg Tablet 2 mg PO QDAY metoprolol succinate 50 mg Tablet Extended Release 24 Hr 50 mg PO QDAY spironolactone 25 mg Tablet 25 mg PO 1XD sacubitril-valsartan [Entresto] 24-26 mg Tablet 1 tab PO BID amiodarone 200 mg tablet 200 mg PO BID Patient Comments: TAKE 1 TABLET BY MOUTH TWICE A DAY FOR 90 DAYS metolazone 5 mg tablet 5 mg PRN PRN (Reason: Fluid retention) Patient Comments: TAKE 1 TABLET BY MOUTH NEEDED FOR 90 DAYS pantoprazole 40 mg tablet,delayed release (DR/EC) 40 mg PO 1XD Patient Comments: TAKE 1 TABLET BY MOUTH EVERY DAY FOR 90 DAYS clopidogrel [Plavix] 75 mg Tablet 75 mg PO QDAY Qty: 30 0RF aspirin 81 mg Tablet,Delayed Release (Dr/Ec) 81 mg PO QDAY Qty: 30 0RF Referrals: Tereza Donaldson, DATA COLLECTION INTERVIEWER [Primary Care Provider] - In 1 week Problem List Clinical Impression: Itching Patient/Caregiver Discharge Instructions Discharge Activity: activity as tolerated Education Materials: ED Contact Dermatitis Additional Instructions: Discharge Instructions from Dr. Olivo printed for you: 1. After evaluation, exact cause of your many areas of itching was not determined. 2. But we need to help stop scratching. Which will damage her skin and make the itching worse. Take prednisone as prescribed, this will help the itching. And Benadryl, topical steroid cream, and cold compress as needed. 3. See a private doctor in a week if not completely better. Ask for a referral to see rag collector. 4. Seek immediate medical care with worsening or with any concerns. Print Language: Setswana Stand Alone Forms: Antonia Award Info., Patient Portal Info Letter
[2025-01-18 23:43] LABS: Collection Type, Urine Clean Catch; Squamous Epithelial Cell,Urine 0 /hpf (0-5); WBC,Urine 0 /hpf (0-5)
[2025-01-18] MEDS: SODIUM CHLORIDE 0.9% 1000 ML 1,000 ML 999 ML IV (23:46)
[2025-01-18 23:47] LABS: Basophils % (Auto) 0 % (0-2.5); Eosinophils # (Auto) 0.2 Thou/mm3 (0.0-0.5); Eosinophils % (Auto) 3 % (0-10); Hematocrit 31.2 % (41.0-53.0); Hemoglobin 10.6 g/dL (13.5-16.0); Immature Granulocytes % (Auto) 1 % (0-0); Immature Granulocytes Auto 0.06 Thou/mm3 (0.00-0.00); Lymphocytes # (Auto) 1.4 Thou/mm3 (1.0-4.8); Lymphocytes % (Auto) 17 % (10-50); Mean Corpuscular Hemoglobin 29.9 pg (25.0-35.0); Mean Corpuscular Volume 88 fL (80-100); Monocytes # (Auto) 0.8 Thou/mm3 (0.0-0.8); Monocytes % (Auto) 10 % (0-12); Neutrophils # (Auto) 5.5 Thou/mm3 (1.8-7.7); Neutrophils % (Auto) 69 % (37-80); Nucleated Red Blood Cell % 0 /100 WBC (0); Platelet Count 146 Thou/mm3 (140-440); RDW Standard Deviation 47.7 fL (35.1-43.9); Red Blood Count 3.55 Miln/mm3 (4.50-5.90)
[2025-01-18] MEDS: MethylPREDNISolone SOD SUCC 62.5 MG/ML 2ML VIAL 125 MG IM (23:48)
[2025-01-18] MEDS: DiphenhydrAMINE INJ 50 MG/ML VIAL IV (23:49)
[2025-01-18] MEDS: FAMOTIDINE INJ 10 MG/ML VIAL 2 ML 20 MG IVP (23:49)
[2025-01-18 23:53] LABS: Bilirubin,Urine Negative (Negative); Blood,Urine Negative (Negative); Clarity,Urine Clear (Clear/Hazy); Color,Urine Colorless (Lt Yel-Yel); Culture Indicated,Urine Not Indicated; Glucose, Urine 4+ (Negative); Ketones,Urine Negative (Negative); Leukocyte Esterase,Urine Negative (Negative); Nitrite,Urine Negative (Negative); Protein,Urine Negative (Neg - Trace); RBC,Urine < 1 /hpf (0-3); Specific Gravity,Urine 1.018 (1.001-1.035); Urobilinogen,Urine Negative mg/dL (0.0-1.0)
[2025-01-19 00:03] VITALS: BP 139/78; PULSE 64; RESP 14; TEMP 36.4; O2SAT 98
[2025-01-19 00:12] LABS: Alanine Aminotransferase 31 U/L (10-49); Albumin, Serum 3.7 gm/dL (3.5-5.0); Albumin/Globulin Ratio 1.2 (1.2-2.2); Alkaline Phosphatase 100 U/L (46-116); Anion Gap 7 (7-16); Aspartate Amino Transferase 28 U/L (0-34); BUN/Creatinine Ratio 18 Ratio (12-20); Bilirubin,Direct 0.1 mg/dL (0.0-0.3); Bilirubin,Total 0.4 mg/dL (0.3-1.2); Blood Urea Nitrogen 23 mg/dL (9-23); Calcium 8.6 mg/dL (8.3-10.6); Calcium (Corrected) 8.8 mg/dL (8.5-10.1); Carbon Dioxide 27.1 mMol/L (20.0-31.0); Chloride 101 mMol/L (98-107); Creatinine (Component) 1.3 mg/dL (0.6-1.3); Estimated Creatinine Clearance 64.9 mL/min (>60); Free T4 (Free Thyroxine) 1.28 ng/dL (0.89-1.76); Globulin 3.2 gm/dL (2.3-3.5); Glucose 305 mg/dL (74-106); Magnesium 2.3 mg/dL (1.6-2.6); Osmolality,Calculated 284 (275-295); Potassium 3.8 mMol/L (3.4-5.1); Procalcitonin 0.12 ng/ml (0.0-0.49); Sodium 135 mMol/L (136-145); Total Protein 6.9 gm/dL (5.7-8.2); eGFR > 60 See Note
[2025-01-19 00:55] LABS: Sed Rate (ESR) 51 mm/hr (0-20)
[2025-01-19] MEDS: INSULIN HUM REGULAR 1 UNIT/0.01 ML (PER UNIT) 5 UNIT SC (01:09)
[2025-01-19 02:44] VITALS: BP 129/69; PULSE 69; RESP 19; TEMP 36.8; O2SAT 96
--- NOTE | 2025-01-19 03:05 | PC.NURSE ---
Report given to Jo, nurse at [facility].
[2025-01-19 03:10] VITALS: BP 129/69; PULSE 72; RESP 17; TEMP 36.6; O2SAT 95
== END 2025-01-19 03:10 | disposition skilled nursing facility (03) ==
PROVIDERS: Emergency Provider Emergency Medicine; PCP Nurse Practitioner Family
DX: L29.9 Pruritus, unspecified (principal)
CPT/HCPCS: 36415; 80053; 81001; 82248; 83735; 84145; 84439; 84443; 85025; 85652; 86140; 87400; 87811; 96360; 96361; 96372; 96375; 99284; J1200; J1815; J2919; J3490; J7030

== ENCOUNTER 2025-01-27 21:59 | Emergency (ER) | payer OTHER, MEDICAID, SELFPAY ==
[2025-01-27 22:05] VITALS: BP 97/62; PULSE 60; RESP 18; TEMP 37.6; O2SAT 95
[2025-01-27 22:06] VITALS: PULSE 82; RESP 16; O2SAT 98
[2025-01-27 23:02] VITALS: BMI 28.4
[2025-01-27 23:18] VITALS: BP 106/62; PULSE 57; RESP 19; TEMP 37.9; O2SAT 98
--- NOTE | 2025-01-27 23:19 | PD.EDLOWEX ---
Lower Extremity Injury RME/HPI General Chief Complaint: Extremity Injury, Lower Stated Complaint: BILATERAL LEG PAIN Time Seen by Provider: 01/27/25 23:17 Arrival date/time: 01/27/25 21:59 RME / HPI RME / HPI Narrative: Dr. Galvin?s Main ED Evaluation: 59yo male with a history of HFrEF s/p AICD/pacemaker, DMII, aFib, HLD BIBA from [facility] presents to the ED for vague complaints. Patient states he does not know why he was sent over for evaluation. Patient states he has chronic wounds to his bilateral feet, but he denies any fever or chills. Patient denies any cough, chest pain, shortness of breath or any other associated symptoms. Related Data Home Medications ?Medication ?Instructions ?Recorded ?Confirmed glipizide 5 mg tablet 5 mg PO BID 08/28/19 09/30/24 metformin 500 mg tablet 1,000 mg PO BID 08/28/19 09/30/24 Held on 09/30/24. Instructions: Resume on 10/02/24. bumetanide 2 mg tablet 2 mg PO QDAY 03/28/22 09/30/24 metoprolol succinate 50 mg 50 mg PO QDAY 03/28/22 09/30/24 tablet,extended release 24 hr sacubitril 24 mg-valsartan 26 mg 1 tab PO BID 03/28/22 09/30/24 tablet (Entresto) spironolactone 25 mg tablet 25 mg PO 1XD 03/28/22 09/30/24 amiodarone 200 mg tablet 200 mg PO BID 09/14/24 09/30/24 metolazone 5 mg tablet 5 mg PRN PRN Fluid retention 09/14/24 09/30/24 pantoprazole 40 mg tablet,delayed 40 mg PO 1XD 09/14/24 09/30/24 release Previous Rx's ?Medication ?Instructions ?Recorded atorvastatin 10 mg tablet 10 mg PO QDAY 30 days #30 tabs 01/29/22 aspirin 81 mg tablet,delayed 81 mg PO QDAY #30 tabs 09/30/24 release clopidogrel 75 mg tablet (Plavix) 75 mg PO QDAY #30 tabs 09/30/24 Allergies Allergy/AdvReac Type Severity Reaction Status Date / Time Penicillins Allergy Unknown Verified 01/27/25 22:05 Review of Systems Review of Systems Systems Reviewed: All systems reviewed, normal except as documented ED Exam Narrative Physical exam: GENERAL APPEARANCE: alert and oriented x 4, well-developed, well-nourished, no acute distress VITALS: All vitals were reviewed and the pulse ox is 98% on room air, which is normal according to my interpretation. HEENT: Normocephalic, atraumatic; pupils equal, round, reactive to light; EOMI; mucous membranes pink, moist; oropharynx clear NECK: Supple LUNGS: CTABL; no wheezes, no rales, no rhonchi HEART: Regular rate, regular rhythm; normal S1, S2; no murmurs ABDOMEN: non distended; normal BS; soft, no tenderness, no guarding, no rebound; no masses, no organomegaly, no hernia BACK: no CVA tenderness EXTREMITIES: atraumatic; no edema NEUROLOGIC: awake; alert and oriented x4; cranial nerves II-XII grossly intact; no focal sensory or motor deficits PSYCHIATRIC: appropriate mood and affect SKIN: warm, dry, normal color; no rashes Course Quality Measures none Orders Category Date Time Status Acetaminophen Tab [Tylenol ES Tab] Med 01/27/25 23:20 Discontinued 500 mg PO X1 ONE Vital Signs Vital signs: Vital Signs Temperature 99.7 F 01/27/25 22:05 Pulse Rate 60 01/27/25 22:05 Respiratory Rate 18 01/27/25 22:05 Blood Pressure 97/62 01/27/25 22:05 Pulse Oximetry (%) 95 01/27/25 22:05 Oxygen Delivery Method Room Air 01/27/25 22:05 Extremity Injury, Lower MDM Narrative MDM Narrative:: Scribe Attestation: 01/27/25 Michelle Bryant am scribing for and in the presence of Dr. Galvin. 2334: I called [facility], and Rachna informed me that the nurse taking care of the patient is on lunch. I gave her a callback number to have them call me back. 2347: Spoke with Rachna, who informed me that the patient called EMS and that she was unaware that he did so. She states she assessed the patient and did not feel that he needed to come in. 0042: Patient is insistent on that he does not know why he was sent over, stating he was told to call 911 to come in for evaluation. He notes he does not like it at that facility because people are always screaming . Patient is stable to be discharged back to the SNF. Patient data External records reviewed:: [facility] previous records (Per chart review, patient was seen here on 01/18/25 for itching.) Clinical information provided by:: patient Social determinants that could affect healthcare access:: housing (SNF resident) Patient has the following chronic illnesses:: HFrEF s/p AICD/pacemaker, DMII, aFib, HLD How is presenting disease/condition affected by chronic disease/condition?: uneffected by Evaluation data The following diagnostics were reviewed and interpreted by me:: other (specify) (none) Lab and/or radiology exams considered but not ordered:: none Interpretation Summary: none Medications / Prescriptions Medications or Prescriptions considered but not ordered:: none Medication administrations:: Medication Administration History Discontinued Medications Acetaminophen (Acetaminophen 500 Mg Tablet) 500 mg PO X1 ONE Stop: 01/27/25 23:21 Last Admin: 01/28/25 00:06 Dose: 500 mg Documented By: EF see above Consultations Consultation(s) initiated? (list below): No Diagnosis Extremity Injury, Lower Differential Diagnosis: other (pedal edema, chronic cellulitis, peripheral neuropathy) Most likely diagnosis given after review of the tests above:: see clinical impression below Admission Indicated Admission indicated?: not indicated Admission Request Was there a request for admission?: No Disposition Plan Disposition Plan: Discharge Discharge Attestation Discharge Attestation: The patient and all family members were given an opportunity to ask questions and understood the discharge instructions. Discharge instructions specifically effects, indications for sooner follow up or return to the emergency department, and the expected course of current diagnosis. Patient condition: Stable Discharge Plan Plan Patient Disposition: HOME (Self Care) Discharge Disposition comment: Stable for discharge home Patient condition on transfer: Stable Prescriptions/Referrals Prescriptions/Med Rec: No Action metformin 500 mg Tablet 1,000 mg PO BID glipizide 5 mg Tablet 5 mg PO BID Rx Instructions: 30 min. before meals twice a day atorvastatin 10 mg Tablet 10 mg PO QDAY 30 Days Qty: 30 0RF bumetanide 2 mg Tablet 2 mg PO QDAY metoprolol succinate 50 mg Tablet Extended Release 24 Hr 50 mg PO QDAY spironolactone 25 mg Tablet 25 mg PO 1XD sacubitril-valsartan [Entresto] 24-26 mg Tablet 1 tab PO BID amiodarone 200 mg tablet 200 mg PO BID Patient Comments: TAKE 1 TABLET BY MOUTH TWICE A DAY FOR 90 DAYS metolazone 5 mg tablet 5 mg PRN PRN (Reason: Fluid retention) Patient Comments: TAKE 1 TABLET BY MOUTH NEEDED FOR 90 DAYS pantoprazole 40 mg tablet,delayed release (DR/EC) 40 mg PO 1XD Patient Comments: TAKE 1 TABLET BY MOUTH EVERY DAY FOR 90 DAYS clopidogrel [Plavix] 75 mg Tablet 75 mg PO QDAY Qty: 30 0RF aspirin 81 mg Tablet,Delayed Release (Dr/Ec) 81 mg PO QDAY Qty: 30 0RF Referrals: [facility] [Provider Group] - In 1 week Problem List Clinical Impression: Chronic wound Patient/Caregiver Discharge Instructions Discharge Activity: activity as tolerated Education Materials: ED Neuropathy, Peripheral Additional Instructions: Please return to the emergency department if you have any worsening or any further medical problems and we will help you. Otherwise you should follow-up with your primary care doctor within the next several days Print Language: Urdu Stand Alone Forms: Antonia Award Info., Patient Portal Info Letter
[2025-01-28 00:06] VITALS: TEMP 37.9
[2025-01-28] MEDS: ACETAMINOPHEN 500 MG TABLET PO (00:06)
[2025-01-28 01:06] VITALS: TEMP 36.7
--- NOTE | 2025-01-28 02:11 | PC.NURSE ---
report [facility] via [facility]
== END 2025-01-28 01:51 | disposition home or self-care (01) ==
LOC: SERX 01-28 01:26
PROVIDERS: Emergency Provider Emergency Medicine; PCP Nurse Practitioner Family
DX: S99.922A Unspecified injury of left foot, initial encounter (principal); S99.921A Unspecified injury of right foot, initial encounter; X58.XXXA Exposure to other specified factors, initial encounter
CPT/HCPCS: 99282; A9270

== ENCOUNTER 2025-06-15 07:34 | Emergency (ER) | payer MEDICAID, SELFPAY ==
[2025-06-15] VITALS (9 sets, daily range): BP systolic 120–140; BP diastolic 64–78; PULSE 64–74; RESP 16–18; TEMP 36.4–36.9; O2SAT 95–100; BMI 25.9
--- NOTE | 2025-06-15 08:07 | PC.NURSE ---
Pt BIBA from [facility] due to N/V/Dizzyness x1 day, started about 1030 yesterday. Hasn't been able to walk due to the dizzyness. Pt has extensive cardiac history. Does not endorse any fever. Stated he had diarrhea for about a day and half, 3 days ago. PT c/o generalized abdominal pain, but very tender when palpated on the left side
--- NOTE | 2025-06-15 08:08 | XR_ITS ---
Examination: CT brain head without contrast. 2-D sagittal coronal reconstructions Date and time of exam:June 15, 2025, 0903 hrs., Comparison: June 27, 2007 Indications: Vertigo today CTDI: vol (mGy):54.7 DLP: (mGycm):5 Technique: Multiple CT axial sections of the brain have been obtained, 5 mm slice thickness. Contrast has not been administered. 2-D sagittal, coronal reconstructions have been obtained Low dose protocols were performed. One or more of the following dose reduction techniques were used; automated exposure control, adjustment of the mA and/or KV according to patient size, use of iterative reconstruction technique. Findings: No significant ventricular enlargement. Focal area of probable encephalomalacia in the posterior right temporal parietal lobes, as well as left occipital Intra-axial or extra-axial hemorrhage density is not seen. No mass effect or midline shift Basal cisterns are not remarkable. Fourth ventricle is midline. Cranial vault intact. Impression: Negative for acute hemorrhage, mass effect or midline shift Focal areas of probable encephalomalacia in the posterior right temporal parietal, as well as left occipital, clinical correlation advised and follow-up recommended accordingly
--- NOTE | 2025-06-15 08:10 | EKG_ITS ---
[facility] Test Date: 2025-06-15 Pat Name: ARCHIE WILDER Department: Room: - Gender: Male [employer]ure [employer] Analyst: : 1965 Requested By: Caridad Martinez Order Number: [id number] Reading MD: Caridad Martinez Measurements Intervals [place] Rate: 63 P: 63 PA: 118 QRS: 267 QRSD: 184 T: 90 QT: 531 QTc: 545 Interpretive Statements ELECTRONIC VENTRICULAR PACEMAKER ABNORMAL RHYTHM ECG Compared to ECG 09/27/2024 11:27:17 Atrial-paced complex(es) or rhythm no longer present Left-axis deviation no longer present Intraventricular conduction delay no longer present /store/S0/[id number]/ecg/[id number].pdf
--- NOTE | 2025-06-15 08:10 | XR_ITS ---
Examination: Abdomen AP single view Technique: AP portable supine abdomen, single view Exam date and time: June 15, 2025, 840 Indications: Abdominal pain several days. Findings: Moderate stool throughout the colon. No obstruction. No free air. No renal or ureteral calculi Impression: Nonobstructive bowel gas pattern
--- NOTE | 2025-06-15 08:10 | XR_ITS ---
Examination: AP chest single view Technique one AP portable upright chest single view Date and time: June 15, 2025, 0845 hrs., Comparison September 11, 2024 Indications: Weakness shortness of breath today. Findings: Mild enlargement cardiac contour. Cardiac leads satisfactory position. No pneumonia or pulmonary edema. Mild osteopenia Impression: No pneumonia or pulmonary edema.
[2025-06-15 08:56] LABS: Basophils # (Auto) 0.0 Thou/mm3 (0.0-0.2); Basophils % (Auto) 1 % (0-2.5); Eosinophils # (Auto) 0.3 Thou/mm3 (0.0-0.5); Eosinophils % (Auto) 4 % (0-10); Hematocrit 34.8 % (41.0-53.0); Hemoglobin 10.9 g/dL (13.5-16.0); Immature Granulocytes Auto 0.03 Thou/mm3 (0.00-0.00); Lymphocytes # (Auto) 1.2 Thou/mm3 (1.0-4.8); Lymphocytes % (Auto) 18 % (10-50); Mean Corpuscular HGB Conc 31.3 g/dl (31.0-37.0); Mean Corpuscular Hemoglobin 27.0 pg (25.0-35.0); Mean Corpuscular Volume 86 fL (80-100); Monocytes # (Auto) 0.6 Thou/mm3 (0.0-0.8); Monocytes % (Auto) 9 % (0-12); Neutrophils # (Auto) 4.4 Thou/mm3 (1.8-7.7); Neutrophils % (Auto) 68 % (37-80); Nucleated Red Blood Cell # 0.00 Thou/mm3 (0.00-0.00); Nucleated Red Blood Cell % 0 /100 WBC (0); Platelet Count 156 Thou/mm3 (140-440); RDW Standard Deviation 49.5 fL (35.1-43.9); Red Blood Count 4.04 Miln/mm3 (4.50-5.90); White Blood Count 6.5 Thou/mm3 (3.8-10.6)
[2025-06-15 09:02] LABS: INR 1.0 (0.9-1.3); Prothrombin Time 11.0 Seconds (9.0-12.2)
[2025-06-15 09:16] LABS: Alanine Aminotransferase 25 U/L (10-49); Albumin, Serum 4.1 gm/dL (3.5-5.0); Albumin/Globulin Ratio 1.2 (1.2-2.2); Alkaline Phosphatase 103 U/L (46-116); Anion Gap 9 (7-16); Aspartate Amino Transferase 27 U/L (0-34); BUN/Creatinine Ratio 18 Ratio (12-20); Bilirubin,Total 0.5 mg/dL (0.3-1.2); Blood Urea Nitrogen 20 mg/dL (9-23); Calcium 10.0 mg/dL (8.3-10.6); Calcium (Corrected) 10.0 mg/dL (8.5-10.1); Carbon Dioxide 26.3 mMol/L (20.0-31.0); Chloride 107 mMol/L (98-107); Creatinine (Component) 1.1 mg/dL (0.6-1.3); Estimated Creatinine Clearance 70.0 mL/min (>60); Globulin 3.3 gm/dL (2.3-3.5); Glucose 175 mg/dL (74-106); Lipase 32 U/L (12-53); Osmolality,Calculated 289 (275-295); Potassium 3.9 mMol/L (3.4-5.1); Sodium 142 mMol/L (136-145); Total Protein 7.4 gm/dL (5.7-8.2); Troponin I 0.034 ng/mL (0.0-0.045); eGFR > 60 See Note
[2025-06-15 10:14] LABS: Collection Type, Urine Clean Catch; Squamous Epithelial Cell,Urine 0 /hpf (0-5)
--- NOTE | 2025-06-15 10:36 | PD.EDDIZZY ---
ED Dizzyness RME/HPI General Chief Complaint: Dizziness Stated Complaint: vomiting and dizziness Time Seen by Provider: 06/15/25 07:37 Arrival date/time: 06/15/25 07:34 Limitations: no limitations RME / HPI RME / HPI Narrative: DR. PALOMO MAIN ED EVALUATION: 59-year-old male with past medical history of HFrEF status post AICD/pacemaker placement, diabetes mellitus type II, atrial fibrillation, hyperlipidemia, and recent valve stent replacement under the care of diet supervisor Dr. Tariq, adn Dr. Henley presents to the Emergency Department for evaluation of dizziness and generalized weakness ongoing for the past couple of days. He denies chest pain, shortness of breath, palpitations, syncope, nausea, vomiting, or recent illness. Related Data Home Medications ?Medication ?Instructions ?Recorded ?Confirmed glipizide 5 mg tablet 5 mg PO BID 08/28/19 09/30/24 metformin 500 mg tablet 1,000 mg PO BID 08/28/19 09/30/24 Held on 09/30/24. Instructions: Resume on 10/02/24. bumetanide 2 mg tablet 2 mg PO QDAY 03/28/22 09/30/24 metoprolol succinate 50 mg 50 mg PO QDAY 03/28/22 09/30/24 tablet,extended release 24 hr sacubitril 24 mg-valsartan 26 mg 1 tab PO BID 03/28/22 09/30/24 tablet (Entresto) spironolactone 25 mg tablet 25 mg PO 1XD 03/28/22 09/30/24 amiodarone 200 mg tablet 200 mg PO BID 09/14/24 09/30/24 metolazone 5 mg tablet 5 mg PRN PRN Fluid retention 09/14/24 09/30/24 pantoprazole 40 mg tablet,delayed 40 mg PO 1XD 09/14/24 09/30/24 release Previous Rx's ?Medication ?Instructions ?Recorded atorvastatin 10 mg tablet 10 mg PO QDAY 30 days #30 tabs 01/29/22 aspirin 81 mg tablet,delayed 81 mg PO QDAY #30 tabs 09/30/24 release clopidogrel 75 mg tablet (Plavix) 75 mg PO QDAY #30 tabs 09/30/24 Allergies Allergy/AdvReac Type Severity Reaction Status Date / Time Penicillins Allergy Unknown Verified 05/19/25 22:05 Review of Systems Review of Systems Systems Reviewed: All systems reviewed, normal except as documented Past Medical History Past Medical History CARDIAC: Positive Cardiac Disorders, Coronary Artery Disease, Hypercholesterolemia, Congestive Heart Failure, Cardiomyopathy, Edema, Cellulitis, Hypertension and Hypotension GASTROINTESTINAL: Positive Obesity GENITOURINARY: Positive Genitourinary Disorders and Kidney Stones MUSCULOSKELETAL: Positive Arthritis ENT: Positive Cataracts ENDOCRINE: Positive Endocrine Disorders and Diabetes Mellitus Type 2 OTHER HISTORY: Positive Hospitalization and Chicken Pox Family History FAMILY HISTORY: Positive Family Cancer Surgical History SURGICAL: Positive Cardiac Surgery, Cardiac Catheterization, Pacemaker, Angiogram, Auto Implanted Cardiovert Defib and Amputation (right 4th toe) Social History SMOKING STATUS: Former smoker SUBSTANCE USE: does not use ED Exam General Limitations: Present no limitations General appearance: Present alert and other (Chronically ill appearing with acute decompensation; diaphoretic.) Head Head exam: Present atraumatic, normocephalic and normal inspection Eye Eye exam: Present normal appearance, PERRL and EOMI ENT ENT exam: Present normal exam, normal oropharynx and mucous membranes moist Neck Neck exam: Present normal inspection, full ROM and trachea midline Chest Chest inspection: Present normal inspection and symmetric chest wall rise Respiratory Respiratory exam: Present normal lung sounds bilaterally Cardiovascular Cardiovascular exam: Present regular rate, normal rhythm and normal heart sounds Abdominal Exam Abdominal exam: Present soft and normal bowel sounds Extremities Exam Extremities exam: Present normal inspection and full ROM Back Exam Back exam: Present normal inspection and full ROM Neurological Exam Neurological exam: Present alert, oriented X3 and CN II-XII intact Psychiatric Psychiatric exam: Present normal affect and normal mood Skin Skin exam: Present warm, normal color and diaphoresis Course Quality Measures none Orders Category Date Time Status CT Screening NOW Care 06/15/25 08:09 Completed EKG (ED ONLY) *Do not use* NOW Care 06/15/25 08:[address] head/brain wo con Stat Exams 06/15/25 08:08 Completed CXR [XR chest 1V] Stat Exams 06/15/25 08:10 Completed EKG (ED Only) Stat Exams 06/15/25 08:10 Draft KUB [XR abdomen 1V] Stat Exams 06/15/25 08:10 Completed CBC Stat Lab 06/15/25 08:33 Completed CMP [Comprehensive Metabolic Panel] Stat Lab 06/15/25 08:33 Completed Lipase Stat Lab 06/15/25 08:33 Completed PT [Prothrombin Time with INR] Stat Lab 06/15/25 08:33 Completed Troponin I Stat Lab 06/15/25 08:33 Completed Troponin I Stat Lab 06/15/25 11:04 Completed Type and Screen Stat Lab 06/15/25 08:33 Completed UA, C/S IF [Urinalysis, C/S if Indicated] Stat Lab 06/15/25 10:04 Completed Urine Culture Stat Lab 06/15/25 10:04 Completed Magnesium Sulfate 1 gm Ivpb [Magnesium Sulfate Ivpb] Med 06/15/25 13:16 Discontinued 1 gm in 100 ml IV X1 Metoclopramide Inj [Reglan Inj] Med 06/15/25 10:58 Discontinued 5 mg IVP STAT STA cefTRIAXone/D5w 1gm IV premix [Rocephin/D5w 1gm IV Med 06/15/25 13:19 Discontinued premix] 1 gm in 50 ml IV STAT Vital Signs Vital signs: Vital Signs Temperature 98.0 F 06/15/25 07:37 Pulse Rate 70 06/15/25 07:37 Respiratory Rate 18 06/15/25 07:37 Blood Pressure 139/72 H 06/15/25 07:37 Pulse Oximetry (%) 99 06/15/25 07:37 Oxygen Delivery Method Room Air 06/15/25 07:37 Dizziness MDM Narrative MDM Narrative:: Patient is a 59-year-old male is in the Emergency Department feeling dizzy and weak. Vital signs and exam as listed. Concern for ACS arrhythmia electrolyte abnormality viral syndrome CHF exacerbation intracranial hemorrhage among others. Ordered labs EKG chest x-ray also ordered CT brain. Labs without acute hematologic abnormality. No significant metabolic abnormality. Troponin 0.034. CT brain without hemorrhage, KUB unremarkable, CXR unremarkeable. EKG with paced rhythm, prolonged QT magnesium provided. Nonspecific T wave changes, not a cardiac alert. Repeat troponin continues to be below the upper limit of normal. Patient denies any chest pain or shortness of breath. Urinalysis with 101 white blood cells 4 red blood cells positive leuk esterase nitrate negative, no bacteria however given findings on urinalysis we will treat for urinary tract infection and sent for culture. Patient does not have any allergies. Patient was given medications to help with symptom control. On reassessment symptoms completely resolved patient feels fine denies any chest pain shortness of breath abdominal pain. Will discharge back to his halfway patient is hemodynamically stable not in distress. Patient's diet supervisor Dr. Henley evaluated the patient at bedside, reassured by patient's workup. Okay to discharge to home. I, Cindy Isabel, am scribing for and in the presence of Dr. Palomo. Patient data External records reviewed:: [facility] previous records and EMS form Clinical information provided by:: patient and EMS Social determinants that could affect healthcare access:: none Patient has the following chronic illnesses:: Medical history of HFrEF status post AICD/pacemaker placement, diabetes mellitus type II, atrial fibrillation, hyperlipidemia, and recent valve stent replacement under the care of diet supervisor Dr. Tariq. How is presenting disease/condition affected by chronic disease/condition?: exacerbated by Evaluation data The following diagnostics were reviewed and interpreted by me:: lab results, radiology exam(s) and EKG tracing(s) (My interpretation: EKG performed at 0824 hours, paced rhythm, rate 63, normal [place], QT 531, not a cardiac alert?) Lab and/or radiology exams considered but not ordered:: none Interpretation Summary: See MDM narrative above. RADIOLOGY Procedure(s): CT head/brain wo con Accession Number(s): [id number] cc: Julian Wiley MD; NO PRIMARY/FAMILY,PHYSICIAN; Caridad Palomo MD~ Examination: CT brain head without contrast. 2-D sagittal coronal reconstructions Date and time of exam:June 15, 2025, 0903 hrs., Comparison: June 27, 2007 Indications: Vertigo today CTDI: vol (mGy):54.7 DLP: (mGycm):5 Technique: Multiple CT axial sections of the brain have been obtained, 5 mm slice thickness. Contrast has not been administered. 2-D sagittal, coronal reconstructions have been obtained Low dose protocols were performed. One or more of the following dose reduction techniques were used; automated exposure control, adjustment of the mA and/or KV according to patient size, use of iterative reconstruction technique. Findings: No significant ventricular enlargement. Focal area of probable encephalomalacia in the posterior right temporal parietal lobes, as well as left occipital Intra-axial or extra-axial hemorrhage density is not seen. No mass effect or midline shift Basal cisterns are not remarkable. Fourth ventricle is midline. Cranial vault intact. Impression: Negative for acute hemorrhage, mass effect or midline shift Focal areas of probable encephalomalacia in the posterior right temporal parietal, as well as left occipital, clinical correlation advised and follow-up recommended accordingly Dictated By: Julian Wiley MD Procedure(s): XR abdomen 1V Accession Number(s): [id number] cc: Julian Wiley MD; NO PRIMARY/FAMILY,PHYSICIAN; Caridad Palomo MD~ Examination: Abdomen AP single view Technique: AP portable supine abdomen, single view Exam date and time: June 15, 2025, 0841 Indications: Abdominal pain several days. Findings: Moderate stool throughout the colon. No obstruction. No free air. No renal or ureteral calculi Impression: Nonobstructive bowel gas pattern Dictated By: Julian Wiley MD Procedure(s): XR chest 1V Accession Number(s): [id number] cc: Julian Wliey MD; NO PRIMARY/FAMILY,PHYSICIAN; Caridad Palomo MD~ Examination: AP chest single view Technique one AP portable upright chest single view Date and time: June 15, 2025, 0845 hrs., Comparison September 11, 2024 Indications: Weakness shortness of breath today. Findings: Mild enlargement cardiac contour. Cardiac leads satisfactory position. No pneumonia or pulmonary edema. Mild osteopenia Impression: No pneumonia or pulmonary edema. Dictated By: Julian Wiley MD Medications / Prescriptions Medications or Prescriptions considered but not ordered:: none Medication administrations:: Medication Administration History Discontinued Medications Magnesium Sulfate/Dextrose (Magnesium Sulfate Ivpb) 1 gm in 100 mls @ 100 mls/hr IV X1 ONE Stop: 06/15/25 14:15 Last Admin: 06/15/25 14:00 Dose: 100 mls/hr Documented By: BY Ceftriaxone Sodium/Dextrose (Rocephin/D5w 1gm Iv Premix) 1 gm in 50 mls @ 100 mls/hr IV STAT STA Stop: 06/15/25 13:48 Last Admin: 06/15/25 13:36 Dose: 100 mls/hr Documented By: BY Metoclopramide HCl (Metoclopramide Inj 5 Mg/Ml Vial 2 Ml) 5 mg IVP STAT STA; Protocol Stop: 06/15/25 10:59 Last Admin: 06/15/25 11:02 Dose: 5 mg Documented By: BY see above if any Consultations Consultation(s) initiated? (list below): No Diagnosis Dizziness Differential Diagnosis: other (Arrhythmia, orthostatic hypotension, and pacemaker or valve dysfunction.) Most likely diagnosis given after review of the tests above:: weakness, vertigo Admission Indicated Admission indicated?: not indicated Admission Request Was there a request for admission?: No Disposition Plan Disposition Plan: Discharge Discharge Attestation Discharge Attestation: The patient and all family members were given an opportunity to ask questions and understood the discharge instructions. Discharge instructions specifically effects, indications for sooner follow up or return to the emergency department, and the expected course of current diagnosis. Patient condition: Stable Discharge Plan Plan Patient Disposition: HOME (Self Care) Prescriptions/Referrals Prescriptions/Med Rec: No Action metformin 500 mg Tablet 1,000 mg PO BID glipizide 5 mg Tablet 5 mg PO BID Rx Instructions: 30 min. before meals twice a day atorvastatin 10 mg Tablet 10 mg PO QDAY 30 Days Qty: 30 0RF bumetanide 2 mg Tablet 2 mg PO QDAY metoprolol succinate 50 mg Tablet Extended Release 24 Hr 50 mg PO QDAY spironolactone 25 mg Tablet 25 mg PO 1XD sacubitril-valsartan [Entresto] 24-26 mg Tablet 1 tab PO BID amiodarone 200 mg tablet 200 mg PO BID Patient Comments: TAKE 1 TABLET BY MOUTH TWICE A DAY FOR 90 DAYS metolazone 5 mg tablet 5 mg PRN PRN (Reason: Fluid retention) Patient Comments: TAKE 1 TABLET BY MOUTH NEEDED FOR 90 DAYS pantoprazole 40 mg tablet,delayed release (DR/EC) 40 mg PO 1XD Patient Comments: TAKE 1 TABLET BY MOUTH EVERY DAY FOR 90 DAYS clopidogrel [Plavix] 75 mg Tablet 75 mg PO QDAY Qty: 30 0RF aspirin 81 mg Tablet,Delayed Release (Dr/Ec) 81 mg PO QDAY Qty: 30 0RF Referrals: No Primary/Family,Physician [Primary Care Provider] - In 1 week Problem List Clinical Impression: Vertigo, Urinary tract infection Patient/Caregiver Discharge Instructions Education Materials: Understanding Urinary Tract ..., Vertigo Staying Safe Additional Instructions: Important that you follow-up with your primary care doctor within next 1 to 2 days. Return immediately for worsening symptoms or any other symptom of concern. Print Language: Yakut Stand Alone Forms: Antonia Award Info., Patient Portal Info Letter
[2025-06-15] MEDS: METOCLOPRAMIDE INJ 5 MG/ML VIAL 2 ML IVP (11:02)
[2025-06-15 11:06] LABS: Bilirubin,Urine Negative (Negative); Blood,Urine Negative (Negative); Budding Yeast,Urine Present; Color,Urine Lt-Yellow (Lt Yel-Yel); Glucose, Urine 4+ (Negative); Hyphae Yeast Present; Ketones,Urine 1+ (Negative); Leukocyte Esterase,Urine Positive (Negative); Nitrite,Urine Negative (Negative); PH,Urine 6.0 (5.0-7.0); Protein,Urine 1+ (Neg - Trace); RBC,Urine 4 /hpf (0-3); Specific Gravity,Urine 1.031 (1.001-1.035); Urobilinogen,Urine Negative mg/dL (0.0-1.0); WBC,Urine 101 /hpf (0-5)
[2025-06-15 11:09] LABS: Clarity,Urine Hazy (Clear/Hazy); Culture Indicated,Urine Yes
[2025-06-15 11:30] LABS: Troponin I 0.043 ng/mL (0.0-0.045)
[2025-06-15] MEDS: cefTRIAXone/D5w 1gm IV premix 1 GM/50 ML BAG IV (13:36)
--- NOTE | 2025-06-15 14:46 | PC.SS ---
Inspector [employer] (TONY) Sandi contacted by [facility] requesting transportation for patient to return to [facility] facility. Patient presented from [facility]. SW contacted [facility] and spoke to customer development representative, Wen. Patient has a tentative brick picker time of [phone], reference number: [id number].
== END 2025-06-15 16:38 | disposition home or self-care (01) ==
PROVIDERS: Emergency Provider Emergency Medicine
DX: R42 Dizziness and giddiness (principal); N39.0 Urinary tract infection, site not specified; Z95.810 Presence of automatic (implantable) cardiac defibrillator; I50.22 Chronic systolic (congestive) heart failure; E11.9 Type 2 diabetes mellitus without complications; I48.91 Unspecified atrial fibrillation; E78.5 Hyperlipidemia, unspecified
CPT/HCPCS: 36415; 70450; 71045; 74018; 80053; 81001; 83690; 84484; 85025; 85610; 86850; 86900; 86901; 87086; 93005; 96374; 99284; J0696; J2765; J3475

== ENCOUNTER → 2025-08-20 | Outpatient (CLI) | payer MEDICARE, MEDICAID, SELFPAY ==
--- NOTE | 2025-08-20 14:48 | XR_ITS ---
Examination: Foot, right, 3 views Technique: AP, oblique, lateral views foot, 3 views Date and time of exam: August 20, 2025, 1502 hours, comparison July 13, 2025 INDICATIONS: Nonhealing ulcer right foot 2 years, amputation fourth digit 2 years ago FINDINGS: Amputation at the level of the base of the proximal phalanx fourth digit Prominent osteopenia Moderate osteoarthritis first metatarsophalangeal joint No verena cortical bone destruction IMPRESSION: No verena cortical bone destruction
== END | disposition home or self-care (01) ==
PROVIDERS: PCP Nurse Practitioner Family; Referring Provider Podiatrist; Visit Provider Podiatrist
DX: L97.512 Non-pressure chronic ulcer of other part of right foot with fat layer exposed (principal); Z89.421 Acquired absence of other right toe(s)
CPT/HCPCS: 36415; 73630; 80053; 80061; 82043; 82570; 83036; 84443; 85025

== ENCOUNTER → 2025-08-21 | Outpatient (CLI) | payer MEDICARE, MEDICAID, SELFPAY ==
[2025-08-21 10:32] LABS: Free T4 (Free Thyroxine) 2.48 ng/dL (0.89-1.76); Thyroid Stimulating Hormone < 0.01 uIU/mL (0.55-4.78)
== END | disposition home or self-care (01) ==
LOC: COPL 08:57
PROVIDERS: PCP Family Medicine; Referring Provider Nurse Practitioner Family; Visit Provider Nurse Practitioner Family
DX: R94.6 Abnormal results of thyroid function studies (principal)
CPT/HCPCS: 36415; 84439; 84443

== ENCOUNTER → 2025-08-28 | Outpatient (CLI) | payer MEDICAID, MEDICARE, SELFPAY | END | disposition home or self-care (01) | PROVIDERS: PCP Nurse Practitioner Family; Referring Provider Nurse Practitioner Family; Visit Provider Surgery | DX: S91.301A Unspecified open wound, right foot, initial encounter (principal); X58.XXXA Exposure to other specified factors, initial encounter; I11.9 Hypertensive heart disease without heart failure; E11.40 Type 2 diabetes mellitus with diabetic neuropathy, unspecified; Z79.4 Long term (current) use of insulin; Z79.84 Long term (current) use of oral hypoglycemic drugs; M85.88 Other specified disorders of bone density and structure, other site; M19.071 Primary osteoarthritis, right ankle and foot | CPT/HCPCS: 11042; 99212; A9270; G0463 ==

== ENCOUNTER → 2025-09-05 | Outpatient (CLI) | payer MEDICARE, MEDICAID, SELFPAY | END | disposition home or self-care (01) | PROVIDERS: PCP Family Medicine; Referring Provider Family Medicine; Visit Provider Surgery | DX: S91.301A Unspecified open wound, right foot, initial encounter (principal); X58.XXXA Exposure to other specified factors, initial encounter; E11.69 Type 2 diabetes mellitus with other specified complication; E03.9 Hypothyroidism, unspecified; Z79.4 Long term (current) use of insulin; I50.9 Heart failure, unspecified; I51.7 Cardiomegaly; N18.30 Chronic kidney disease, stage 3 unspecified; I48.91 Unspecified atrial fibrillation | CPT/HCPCS: 11043; A9270 ==